=== PATIENT | female | born 1990 | race African-American/Black ===

== ENCOUNTER 2016-08-23 11:50 | Emergency (ER) | payer BC ==
[2016-08-23] MEDS ORDERED: SODIUM CHLORIDE 0.9% 1,000 ML IV STA (13:37)
[2016-08-23] MEDS ORDERED: SODIUM CHLORIDE 0.9% 500 ML IV STA (13:37)
[2016-08-23] MEDS ORDERED: METOCLOPRAMIDE 5 MG/ML 2 ML VIAL IVP STA (13:37)
--- NOTE | 2016-08-23 13:39 | ED ---
General Adult HPI - General Chief complaint: Nausea/Vomiting/Diarrhea Stated complaint: NAUSEA, VOMITING, 6 WEEKS Time Seen by Provider: 08/23/16 13:32 Source: patient, RN notes reviewed Mode of arrival: ambulatory Limitations: no limitations - History of Present Illness Initial comments: Patient is a 26-year-old female who is approximately 6 weeks , who presents emergency room today with a chief complaint of increased nausea vomiting. Denies abdominal pain. Denies any vaginal bleeding or discharge. Patient does admit that she's had increased vomiting over the last 5 days having a difficult time keeping down food or food. Patient denies any signs of blood in the emesis. She denies any other complaints. Does admit to one previous with similar symptoms. Patient denies any recent fever, chills, shortness of breath, chest pain, back pain, abdominal pain, numbness or tingling, dysuria or hematuria, constipation or diarrhea, headaches or visual changes, or any other complaints. - Related Data Previous Rx's Medication Instructions Recorded Metoclopramide HCl [Reglan] 10 mg PO Q6HR PRN #5 day 08/23/16 Allergies Allergy/AdvReac Type Severity Reaction Status Date / Time escitalopram oxalate Allergy Anaphylaxis Verified 08/23/16 14:02 [From Lexapro] Review of Systems ROS Statement: Those systems with pertinent positive or pertinent negative responses have been documented in the HPI. ROS Other: All systems not noted in ROS Statement are negative. Past Medical History Past Medical History: No Reported History Additional Past Medical History / Comment(s): Obstetric history: This is her first and she has had care with Dr Montoya since 9 weeks. A+ , abs neg, Rub Imm, RPR NR, HEp B neg. Neg quad and normal 1hr GTT. GBS was obtained last week-no results known at this time. History of Any Multi-Drug Resistant Organisms: None Reported Additional Past Surgical History / Comment(s): Laparoscopy Past Anesthesia/Blood Transfusion Reactions: No Reported Reaction Past Psychological History: Depression Additional Psychological History / Comment(s): not treated during Smoking Status: Never smoker Past Alcohol Use History: None Reported Past Drug Use History: None Reported - Past Family History Father Family Medical History: Cancer, Hypertension General Exam - General Exam Comments Initial Comments: General: The patient is awake and alert, in no distress, and does not appear acutely ill. Eye: Pupils are equal, round and reactive to light, extra-ocular movements are intact. No nystagmus. There is normal conjunctiva bilaterally. No signs of icterus. Ears, nose, mouth and throat: There are moist mucous membranes and no oral lesions. Neck: The neck is supple, there is no tenderness or JVD. Cardiovascular: There is a regular rate and rhythm. No murmur, rub or gallop is appreciated. Respiratory: Lungs are clear to auscultation, respirations are non-labored, breath sounds are equal. No wheezes, stridor, rales, or rhonchi. Gastrointestinal: Soft, non-distended, non-tender abdomen without masses or organomegaly noted. There is no rebound or guarding present. No CVA tenderness. Bowel sounds are unremarkable. Musculoskeletal: Normal ROM, no tenderness. Strength 5/5. Sensation intact. Pulses equal bilaterally 2+. Neurological: A&O x 3. CN II-XII intact, There are no obvious motor or sensory deficits. Coordination appears grossly intact. Speech is normal. Skin: Skin is warm and dry and no rashes or lesions are noted. Psychiatric: Cooperative, appropriate mood & affect, normal judgment. Limitations: no limitations Course Vital Signs 08/23/16 12:10 Temperature 98.8 F Pulse Rate 91 Respiratory 18 Rate Blood Pressure 139/83 O2 Sat by Pulse 100 Oximetry Medical Decision Making - Medical Decision Making Patient reexamined this time shows no signs of distress. Does admit that she's feeling better after IV medications here in the emergency room. Patient did receive Reglan. She states didn't make her feel anxious was given Benadryl afterwards. States feeling fine at this time. States rather be discharged home. Patient will be discharged home with a prescription for Prevacid. Advised to use Benadryl as needed. Advised to follow-up with her CONSTRUCTION WORKER over the next 2 days or return here the emergency room for any symptoms increase or worsen or for any other concerns. Disposition Clinical Impression: Hyperemesis gravidarum Disposition: HOME SELF-CARE Condition: Good Instructions: Hyperemesis Gravidarum (ED) Additional Instructions: Please use medication as discussed. Please follow-up with CONSTRUCTION WORKER in the next 2 days. Please return to emergency room if the symptoms increase or worsen or for any other concerns. Prescriptions: Metoclopramide HCl [Reglan] 10 mg PO Q6HR PRN #5 day PRN Reason: Nausea Referrals: Juan Johnson MD [Primary Care Provider] - 1-2 days Time of Disposition: 14:51
[2016-08-23] MEDS ORDERED: diphenhydrAMINE 50 MG/ML 1 ML VIAL IVP STA (14:13)
[2016-08-23 15:36] VITALS: BP 108/64; PULSE 80; RESP 16; TEMP 98
== END 2016-08-23 15:36 | disposition home or self-care (01) ==
LOC: EC 11:50
DX: O21.0 Mild hyperemesis gravidarum (principal); Z3A.01 Less than 8 weeks gestation of pregnancy; Z88.8 Allergy status to other drugs, medicaments and biological substances
CPT/HCPCS: 99283; 96374; 96375; 96361 ×2; J1200; J2765

== ENCOUNTER → 2016-09-21 | Outpatient (CLI) | payer BC ==
[2016-09-21 10:47] LABS: CH 30.8; CHCM 33.1; HCT 39.2 % (34.0-46.0); HGB 12.7 gm/dL (11.4-16.0); MCH 30.2 pg (25.0-35.0); MCHC 32.3 g/dL (31.0-37.0); MCV 93.6 fL (80.0-100.0); RBC 4.19 m/uL (3.80-5.40); RDW 12.5 % (11.5-15.5); WBC 7.7 k/uL (3.8-10.6)
[2016-09-21 10:59] LABS: Appearance,Urine Clear (Clear); Bilirubin,Urine Negative (Negative); Glucose,Urine (UA) Negative (Negative); Ketones,Urine Negative (Negative); Leukocyte Esterase,Urine Negative (Negative); Nitrite,Urine Negative (Negative); Protein,Urine Negative (Negative); UA Billing (MACRO vs. MICRO) CHEM; Urobilinogen,Urine <2.0 mg/dL (<2.0)
[2016-09-21 11:03] LABS: Glucose 99 mg/dL (74-99); Non-African American GFR(MDRD) >60 (>60 ml/min/1.73 sqM)
[2016-09-21 11:31] LABS: Hepatitis B Surface Ag Index 0.07
--- NOTE | 2016-09-21 12:41 | US ---
EXAMINATION TYPE: US OB <= 14 wk twins DATE OF EXAM: 09/21/2016 10:27 AM COMPARISON: NONE CLINICAL HISTORY: Confirm Dates Z36.: EXAM PERFORMED: OBTA EXAM MEASUREMENTS: GESTATIONAL AGE / DATING Physician Established: not established Dates by LMP: (10 weeks/2 days) EDC: 04/17/2017 Dates by First Scan: DIE MAKER TRIM Dates by Current Scan for Baby A: ( 9 weeks/6 days) EDC: 04/20/2017 Dates by Current Scan for Baby B: (10 weeks/1 days) EDC: 04/18/2017 MATERNAL ANATOMY Uterus: 15.8 x 11.1 x 6.3cm Right Ovary: 2.3 x 1.3 x 1.3cm Left Ovary: not seen due to bowel gas and enlarging UT Post CDS / Adnexa: wnl Presence of free fluid: no Presence of corpus luteal cyst: not seen Presence of subchorionic bleed: no Presence of two separate gestational sacs: yes GESTATION / SURVEY TWIN A CRL: 2.9cm (9wks/6days) MSD: wnl Yolk Sac (normal less than 6mm): 0.4cm Heart Rate: 172 bpm Rhythm: Normal IUP: Viable IUP TWIN B CRL: 3.1cm (10wks/1days) MSD: wnl Yolk Sac (normal less than 6mm): 0.4cm Heart Rate: 185 bpm Rhythm: Normal IUP: Viable IUP Date of LMP: 07/11/2016 Beta HcG (if available): not available TECHNOLOGIST IMPRESSION: Viable dichorionic diamniotic gestation seen IMPRESSION: Twin viable intrauterine pregnancies corresponding to ultrasound age for fetus A to maternal left skyler e 9 weeks 6 days with estimated date of delivery 20 April 2017 and for twin B to maternal right s rere ultrasound age 10 weeks 1 day estimated date of delivery 18 April 2017
[2016-09-21 13:16] LABS: Specific Gravity,Urine 1.001 (1.001-1.035)
== END | disposition home or self-care (01) ==
LOC: RADUSWWP 09:29
PROVIDERS: ATTEND Obstetrics & Gynecology
DX: O09.41 Supervision of pregnancy with grand multiparity, first trimester (principal); O30.041 Twin pregnancy, dichorionic/diamniotic, first trimester; Z36 Encounter for antenatal screening of mother; Z3A.10 10 weeks gestation of pregnancy
CPT/HCPCS: 36415; 76801; 76802; 81003; 82565; 82947; 85027; 86762; 86780; 86850; 86900; 86901; 87086; 87340; 87491; 87591

== ENCOUNTER 2016-12-21 15:42 | Outpatient (CLI) | payer BC ==
[2016-12-21 16:33] LABS: Appearance,Urine Clear (Clear); Bacteria,Urine Rare /hpf; Bilirubin,Urine Negative (Negative); Glucose,Urine (UA) Negative (Negative); Ketones,Urine Negative (Negative); Leukocyte Esterase,Urine Trace (Negative); Nitrite,Urine Negative (Negative); PH, Urine 6.5 (5.0-8.0); Particle Count 802; Protein,Urine Negative (Negative); RBC,Urine <1 /hpf (0-5); Specific Gravity,Urine 1.002 (1.001-1.035); Squamous Epithelial Cell,Urine 1 /hpf (0-4); UA Billing (MACRO vs. MICRO) MICRO; Urobilinogen,Urine <2.0 mg/dL (<2.0); WBC,Urine 1 /hpf (0-5)
[2016-12-21 16:40] VITALS: BP 114/69; PULSE 107; RESP 14; TEMP 98.4
--- NOTE | 2017-01-23 11:57 | P.MSEPDOC ---
Presenting Problems - Arrival Data Date of Arrival on Unit: 12/21/16 Time of Arrival on Unit: 15:42 Mode of Transport: Ambulatory - Complaint OB-Reason for Admission/Chief Complaint: Other Comment: pt took bp at home at reported it as elevated Medical History - Information : 2 Para: 1 Term: 1 : 0 Abortions: Spontaneous or Elective: 0 Number of Living Children: 0 - Gestational Age Expected Date of Delivery: 04/17/17 Gestational Age by KIRAN (wks/days): 28 Weeks and 0 Days - History Complications: Multiple Review of Systems - Review of Systems Constitutional: No problems Breast: No problems ENT: No problems Cardiovascular: No problems Respiratory: No problems Gastrointestinal: No problems Genitourinary: No problems Musculoskeletal: No problems Neurological: No problems Skin: No problems Vital Signs - Temperature Temperature: 98.4 F Temperature Source: Oral - Pulse Brachial Pulse Rate: 107 Pulse Assessment Method: Automatic Cuff - Respirations Respiratory Rate: 14 Oxygen Delivery Method: Room Air - Blood Pressure Right Arm Blood Pressure: 114/69 Blood Pressure Mean: 84 Blood Pressure Source: Automatic Cuff Medical Screen Scoring (Pre) - Cervical Exam Dilation: Exam Deferred - Uterine Contractions Frequency: N/A Duration: N/A Intensity: N/A - Maternal Vital Signs Maternal Temperature: N/A Signs of Preeclampsia: N/A Maternal Respirations: N/A - Maternal Trauma Maternal Trauma: N/A - Assessment Position: N/A Station: N/A - Total Score Total Score (Pre): 0 - Level of Risk Level of Risk: Low (0-5) Physician Notification (Pre) - Physician Notified Physician Notified Date: 12/21/16 Physician Notified Time: 16:22 Physician/Practitioner Notifed:: yogi Spoke With: yogi New Order Received: Yes - Notification Comment Comment: collect urine, pt may be discharged home, pt will be notified of results if in need of treatment Disposition - Disposition OB Disposition: Discharge to home Discharge Date: 12/21/16 Discharge Time: 16:32 I agree with the RN Medical Screening Exam: Yes Risk & Benefit of care provided described in d/c instruction: Yes Diagnosis: GESTATIONAL HTN W/O SIGNIFICANT PROTEINURIA, THIRD TRIMESTER
== END 2016-12-21 16:42 | disposition home or self-care (01) ==
LOC: FBPOP 15:42
PROVIDERS: ATTEND Obstetrics & Gynecology
DX: O13.3 Gestational [pregnancy-induced] hypertension without significant proteinuria, third trimester (principal); Z3A.28 28 weeks gestation of pregnancy
CPT/HCPCS: 81001; 99213

== ENCOUNTER → 2017-01-03 | Outpatient (CLI) | payer BC ==
[2017-01-03 10:40] LABS: CH 31.2; CHCM 33.9; HCT 34.2 % (34.0-46.0); HDW 2.45; HGB 11.4 gm/dL (11.4-16.0); MCH 30.7 pg (25.0-35.0); MCHC 33.2 g/dL (31.0-37.0); MCV 92.6 fL (80.0-100.0); Mean Platelet Volume 6.9; RDW 12.4 % (11.5-15.5); WBC 7.7 k/uL (3.8-10.6)
== END | disposition home or self-care (01) ==
LOC: LABWHC1 09:24
PROVIDERS: ATTEND Obstetrics & Gynecology
DX: Z34.82 Encounter for supervision of other normal pregnancy, second trimester (principal); Z3A.00 Weeks of gestation of pregnancy not specified
CPT/HCPCS: 36415; 82950; 85027

== ENCOUNTER 2017-02-24 11:12 | Outpatient (CLI) | payer BC ==
[2017-02-24 11:44] VITALS: BP 122/65; PULSE 102; RESP 16; TEMP 97.3
--- NOTE | 2017-02-25 12:07 | P.MSEPDOC ---
Presenting Problems - Arrival Data Date of Arrival on Unit: 02/24/17 Time of Arrival on Unit: 11:12 Mode of Transport: Ambulatory - Complaint OB-Reason for Admission/Chief Complaint: NST Medical History - Information : 2 Para: 1 Term: 1 : 0 Abortions: Spontaneous or Elective: 0 Number of Living Children: 0 - Gestational Age Expected Date of Delivery: 04/17/17 Gestational Age by KIRAN (wks/days): 32 Weeks and 5 Days - History Complications: Multiple Review of Systems - Review of Systems Constitutional: No problems Breast: No problems ENT: No problems Cardiovascular: No problems Respiratory: No problems Gastrointestinal: No problems Genitourinary: No problems Musculoskeletal: No problems Neurological: No problems Skin: No problems Vital Signs - Temperature Temperature: 97.3 F Temperature Source: Axillary - Pulse Right Sitting Brachial Pulse Rate: 102 Pulse Assessment Method: Automatic Cuff - Respirations Respiratory Rate: 16 Oxygen Delivery Method: Room Air O2 Sat by Pulse Oximetry: 97 - Blood Pressure Right Arm Sitting Blood Pressure: 122/65 Blood Pressure Mean: 84 Blood Pressure Source: Automatic Cuff Medical Screen Scoring (Pre) - Cervical Exam Dilation: Exam Deferred Effacement: Exam Deferred Membranes: Intact - Uterine Contractions Frequency: > 5 minutes apart = 1 Duration: > 40 seconds = 2 Intensity: N/A - Maternal Vital Signs Maternal Temperature: N/A Maternal Blood Pressure: N/A Signs of Preeclampsia: N/A Maternal Respirations: N/A - Maternal Trauma Maternal Trauma: N/A - Assessment Baseline FHR: 145 Heart Rate - NICHD Category: Category I (Normal) = 0 NST: Reactive Position: N/A Station: N/A - Total Score Total Score (Pre): 3 - Level of Risk Level of Risk: Low (0-5) Physician Notification (Pre) - Physician Notified Physician Notified Date: 02/24/17 Physician Notified Time: 11:44 New Order Received: Yes - Notification Comment Comment: discharge Disposition - Disposition OB Disposition: Discharge to home Discharge Date: 02/24/17 Discharge Time: 11:51 I agree with the RN Medical Screening Exam: Yes Risk & Benefit of care provided described in d/c instruction: Yes Diagnosis: TWIN , DICHORIONIC/DIAMNIOTIC, THIRD TRIMESTER (nst)
== END 2017-02-24 11:51 | disposition home or self-care (01) ==
LOC: FBPOP 11:12
PROVIDERS: ATTEND Obstetrics & Gynecology
DX: O30.043 Twin pregnancy, dichorionic/diamniotic, third trimester (principal); Z3A.32 32 weeks gestation of pregnancy
CPT/HCPCS: 59025; 99213

== ENCOUNTER 2017-03-03 15:29 | Outpatient (CLI) | payer BC ==
--- NOTE | 2017-03-23 17:36 | P.MSEPDOC ---
Presenting Problems - Arrival Data Date of Arrival on Unit: 03/03/17 Time of Arrival on Unit: 15:31 Mode of Transport: Wheelchair Medical History - Information : 2 Para: 1 Term: 1 : 0 Abortions: Spontaneous or Elective: 0 Number of Living Children: 0 Disposition - Disposition Discharge Date: 03/03/17 Discharge Time: 17:01 I agree with the RN Medical Screening Exam: Yes Risk & Benefit of care provided described in d/c instruction: Yes Diagnosis: DECREASED MOVEMENTS, SECOND TRIMESTER, FETUS 1
== END 2017-03-03 17:01 | disposition home or self-care (01) ==
LOC: FBPOP 15:29
PROVIDERS: ATTEND Obstetrics & Gynecology
DX: O36.8120 Decreased fetal movements, second trimester, not applicable or unspecified (principal)
CPT/HCPCS: 59025; 99213

== ENCOUNTER 2017-03-13 00:45 | Inpatient (IN) | payer BC ==
[2017-03-13] MEDS ORDERED: OXYTOCIN 10 UNIT/ML 1 ML VIAL IM PRN (01:01)
[2017-03-13] MEDS ORDERED: AMPICILLIN 2,000 MG in SODIUM CHLORIDE 0.9% 100 ML IVPB STA (01:01)
[2017-03-13] MEDS ORDERED: METHYLERGONOVINE 0.2 MG/ML 1 ML AMP IM PRN (01:01)
[2017-03-13] MEDS ORDERED: TERBUTALINE 1 MG/ML VIAL SQ PRN (01:01)
[2017-03-13] MEDS ORDERED: LIDOCAINE 1% (PF) 10 MG/ML (30 ML SDV) SQ PRN (01:01)
[2017-03-13] MEDS ORDERED: CARBOPROST TROMETHAMINE 250 MCG/ML 1 ML AMP IM PRN (01:01)
[2017-03-13] MEDS ORDERED: LACTATED RINGERS 1,000 ML IV SCH (01:15)
[2017-03-13 01:26] VITALS: BMI 28.5
[2017-03-13] MEDS ORDERED: KETOROLAC 30 MG/ML 1 ML VIAL ONE (01:37)
[2017-03-13 01:41] LABS: Basophils % (A) 0 %; CH 31.3; CHCM 33.8; Eosinophils # (A) 0.1 k/uL (0-0.7); Eosinophils % (A) 1 %; HCT 37.4 % (34.0-46.0); HDW 2.29; HGB 12.3 gm/dL (11.4-16.0); Luc # (Auto) 0.27; Luc % (Auto) 4; Lymphocytes # (A) 2.2 k/uL (1.0-4.8); Lymphocytes % (A) 30 %; MCH 30.5 pg (25.0-35.0); MCHC 32.8 g/dL (31.0-37.0); Mean Platelet Volume 8.9; Monocytes # (A) 0.4 k/uL (0-1.0); Monocytes % (A) 6 %; Neutrophils # (A) 4.3 k/uL (1.3-7.7); Neutrophils % (A) 59 %; RBC 4.02 m/uL (3.80-5.40); RDW 14.3 % (11.5-15.5); WBC 7.4 k/uL (3.8-10.6); WBC (Perox) 7.98
[2017-03-13] MEDS ORDERED: OXYTOCIN 20 UNITS/1000 ML NS 1,000 ML IV SCH (02:10)
[2017-03-13] MEDS ORDERED: diphenhydrAMINE 50 MG CAP PO PRN (02:22)
[2017-03-13] MEDS ORDERED: diphenhydrAMINE 25 MG CAP PO PRN (02:22)
[2017-03-13] MEDS ORDERED: WITCH HAZEL 1 EACH MED..PAD TOPICAL PRN (02:22)
[2017-03-13] MEDS ORDERED: ACETAMINOPHEN TAB 325 MG TAB PO PRN (02:22)
[2017-03-13] MEDS ORDERED: HYDROCORTISONE 2.5% RECTAL CREAM 30 GM TUBE RECTAL PRN (02:22)
[2017-03-13] MEDS ORDERED: BENZOCAINE/MENTHOL SPRAY 1 GM/SPRAY AEROSOL TOPICAL PRN (02:22)
[2017-03-13] MEDS ORDERED: SIMETHICONE 80 MG CHEWABLE PO PRN (02:22)
[2017-03-13] MEDS ORDERED: Acetaminophen-Codeine 300-30mg TAB PO PRN (02:22)
[2017-03-13] MEDS ORDERED: diphenhydrAMINE 50 MG/ML 1 ML VIAL IVP PRN ×2 (02:22)
[2017-03-13] MEDS ORDERED: ZOLPIDEM 5 MG TAB PO PRN (02:22)
[2017-03-13] MEDS ORDERED: LANOLIN CREAM 5 GM TUBE TOPICAL PRN (02:22)
--- NOTE | 2017-03-13 02:25 | P.HPOB ---
History of Present Illness H&P Date: 03/13/17 Chief Complaint: Intrauterine at 35 weeks with twins: rupture of membranes Layers a 18-year-old at 35 weeks gestation who ryes following rupture of membranes at 12:15 this morning. Fluid was noted be clear. She had been daniel irregularly just prior to that and by the time she gets labor and delivery she was dilated to 6-1/2 cm. She is known twin and she has been followed with maternal medicine. Babies on the monitor both are reactive in the 140s to 150s and heart rate. Her course other than being a twin has been generally unremarkable. On physical exam vital signs are stable and afebrile. Heart regular, lungs clear, extremities without pain. Osteopathic exams unremarkable. Abdomen is soft gravid uterus is noted. Assessment intrauterine at term. Plan is for a vaginal delivery and will plan to do a double set up in the section room. Lengthy discussion has previously been held with the patient and her family on vaginal delivery versus section with twin she is opted for vaginal delivery. Past Medical History Past Medical History: No Reported History Additional Past Medical History / Comment(s): Obstetric history: This is her first and she has had care with Dr Montoya since 9 weeks. A+ , abs neg, Rub Imm, RPR NR, HEp B neg. Neg quad and normal 1hr GTT. GBS was obtained last week-no results known at this time. History of Any Multi-Drug Resistant Organisms: None Reported Additional Past Surgical History / Comment(s): Laparoscopy Past Anesthesia/Blood Transfusion Reactions: No Reported Reaction Past Psychological History: Depression Additional Psychological History / Comment(s): not treated during Smoking Status: Never smoker Past Alcohol Use History: None Reported Past Drug Use History: None Reported - Past Family History Father Family Medical History: Cancer, Hypertension Medications and Allergies Home Medications Medication Instructions Recorded Confirmed Type Aspirin [Adult Low Dose Aspirin EC] 1 tab PO DAILY 12/21/16 03/13/17 History Pnv,Calcium 72/Iron/Folic Acid 1 tab DAILY 12/21/16 03/13/17 History [ Plus Tablet] Doxylamine Succinate [Unisom] 1 tab PO DAILY 02/24/17 03/13/17 History Pyridoxine [Vitamin B-6] 50 mg PO ONCE 02/24/17 03/13/17 History Allergies Allergy/AdvReac Type Severity Reaction Status Date / Time escitalopram oxalate Allergy Anaphylaxis Verified 03/13/17 00:51 [From Lexapro] Exam Osteopathic Statement: *. No significant issues noted on an osteopathic structural exam other than those noted in the History and Physical/Consult. - Vital Signs Vital signs: Vital Signs Temp Pulse Resp BP 03/13/17 00:54 97.1 F L 90 15 132/95 Intake and Output 03/12/17 03/12/17 03/13/17 14:59 22:59 06:59 Other: Weight 73.028 kg Patient Weight 03/13/17 06:59 Weight 73.028 kg Results Result Diagrams: 03/13/17 01:33
--- NOTE | 2017-03-13 02:27 | P.PROBDLV ---
Vaginal Delivery Note - . Vaginal Delivery Note: Patient progressed complete and pushing with spontaneous vaginal delivery of twin babies. Baby a was a girl weighing 4 lbs. 3 oz. with scores of 9 and 9 at one and 5 minutes respectively she was delivered over a first-degree perineal laceration falling deliver the head anterior posterior shoulders easily were delivered and mouth nares were bulb suctioned. Baby was then placed on mother's abdomen where the umbilical cord was allowed to pulsate for approximately 30 seconds following the delivery. Once this was accomplished I did do a vaginal check and did verify the baby be was still vertex and allowed her to have one or 2 contractions to allow the baby to come down and engage. Heart tones remained stable. There was one deceleration that went to this and to the 70s for approximately 20-30 seconds but did return to baseline of 130 shortly thereafter. Artificial rupture membranes was then performed and clear fluid is noted. She again pushed and baby was delivered without difficulty in a similar fashion once head was out interim posterior shoulders were easily delivered mouth and nares were then bulb suctioned and baby was then again placed on mother's abdomen allowed to have the cord pulsate for approximately 30 seconds. Following clamping cutting of the cord nursery personnel was present to assume care. Placenta was then were delivered intact and Pitocin was added to the IV. score for baby B were 8 and 9 at one and 5 minutes respectively and the weight was 4 lbs. 5 oz. Once this was completed lidocaine was injected in the perineum and repaired in interrupted fashion with 3 3-0 Vicryl sutures. Mother and babies both appear stable following delivery.
[2017-03-13] MEDS: Acetaminophen-Codeine 300-30mg TAB PO PRN ×2 (04:02→21:29)
[2017-03-13] MEDS ORDERED: AMPICILLIN 1,000 MG in SODIUM CHLORIDE 0.9% 50 ML IVPB SCH (05:01)
--- NOTE | 2017-03-13 11:15 | P.PNOBGVD ---
Subjective - Subjective Principal diagnosis: day 0 Interval history: Overall there is doing well. She's angling, voiding, and she is tolerating her diet. She had a vaginal delivery of twin babies last night at approximately 2: 30 in the morning. We'll continue care for now no other changes at this time. We'll plan to advance the diet today as well. Patient reports: Reports appetite normal, Reports voiding normally, Reports pain well controlled, Reports ambulating normally [place]: in NICU Objective - Latest Vital Signs Latest vital signs: Vital Signs Temp Pulse Pulse Resp BP Pulse Ox 03/13/17 08:00 97.9 F 76 16 125/85 03/13/17 04:24 97 F L 57 L 15 137/78 100 03/13/17 03:54 58 L 15 156/82 100 03/13/17 03:24 60 15 143/92 03/13/17 03:09 58 L 15 146/90 03/13/17 02:54 61 15 148/88 100 03/13/17 02:39 64 15 145/88 03/13/17 02:24 97.3 F L 70 15 154/91 03/13/17 00:54 97.1 F L 90 15 132/95 Intake and Output 03/12/17 03/13/17 03/13/17 22:59 06:59 14:59 Other: Weight 73.028 kg - Exam Lungs: bilateral: normal Chest: Normal S1, Normal S2 Extremities: Present: normal Abdomen: Present: normal appearance, soft Uterus: Present: normal, firm
[2017-03-13] MEDS: IBUPROFEN 600 MG TAB PO PRN ×2 (11:56→17:56)
[2017-03-14] MEDS: IBUPROFEN 600 MG TAB PO PRN ×4 (02:35→21:27)
[2017-03-14] MEDS: SENNOSIDES-DOCUSATE SODIUM 1 EACH TAB PO SCH ×4 (08:11→21:27)
--- NOTE | 2017-03-14 13:16 | P.PNOBGVD ---
Subjective - Subjective Principal diagnosis: Status post vaginal delivery day #1 Interval history: Patient is doing okay. She is more emotional today. Lochia is decreasing and pain is well-controlled with ibuprofen. She is pumping her breast milk. Patient reports: Reports appetite normal, Reports voiding normally, Reports pain well controlled, Reports ambulating normally [place]: doing well, other (Babies are in special care nursery) Objective - Latest Vital Signs Latest vital signs: Vital Signs Temp Pulse Resp BP 03/14/17 08:00 97.7 F 70 18 128/71 03/14/17 00:00 98.2 F 64 14 122/78 03/13/17 16:00 97.8 F 68 16 123/90 - Exam Extremities: Present: normal Abdomen: Present: normal appearance, soft Uterus: Present: normal, firm Assessment and Plan (1) Vaginal delivery Narrative/Plan: Impression is status post vaginal delivery of twin gestation day #1. Plan is to continue with care. Current Visit: Yes Status: Acute Code(s): O80 - ENCOUNTER FOR FULL-TERM UNCOMPLICATED DELIVERY SNOMED Code(s): 285815198
[2017-03-15 00:06] VITALS: RESP 16
[2017-03-15] MEDS: IBUPROFEN 600 MG TAB PO PRN ×3 (04:31→16:28)
[2017-03-15] MEDS: SENNOSIDES-DOCUSATE SODIUM 1 EACH TAB PO SCH (07:58)
--- NOTE | 2017-03-15 08:46 | P.DS ---
Providers Date of admission: 03/13/17 00:57 Expected date of discharge: 03/15/17 Attending physician: Severino Montoya Primary care physician: Severino Montoya Hospital Course: Sris doing very well day 1. She is involuting, voiding, and she is tolerating her diet. She voices no complaints. Vital signs are stable and afebrile. Heart regular, lungs clear, extremities without pain. Abdomen is soft uterus is firm and lochia is reported be light. She'll be discharged home with a prescription for Motrin for pain and all of the discharge instructions were reviewed. All questions are answered for her prior to discharge and she is stable for discharge at this time. Patient Condition at Discharge: Good Plan - Discharge Summary New Discharge Prescriptions: New Ibuprofen [Motrin] 600 mg PO Q6HR PRN #30 tab PRN Reason: Pain No Action Aspirin [Adult Low Dose Aspirin EC] 1 tab PO DAILY Pnv,Calcium 72/Iron/Folic Acid [ Plus Tablet] 1 tab DAILY Pyridoxine [Vitamin B-6] 50 mg PO ONCE Doxylamine Succinate [Unisom] 1 tab PO DAILY Discharge Medication List Aspirin [Adult Low Dose Aspirin EC] 1 tab PO DAILY 12/21/16 [History] Pnv,Calcium 72/Iron/Folic Acid [ Plus Tablet] 1 tab DAILY 12/21/16 [ History] Doxylamine Succinate [Unisom] 1 tab PO DAILY 02/24/17 [History] Pyridoxine [Vitamin B-6] 50 mg PO ONCE 02/24/17 [History] Ibuprofen [Motrin] 600 mg PO Q6HR PRN #30 tab 03/15/17 [Rx] Follow up Appointment(s)/Referral(s): Severino Montoya DO [Primary Care Provider] - 6 Weeks Activity/Diet/Wound Care/Special Instructions: No heavy lifting, limit stairs and driving, and pelvic rest. If any high temperatures, heavy bleeding, or severe pain call my office Discharge Disposition: HOME SELF-CARE
[2017-03-15 18:48] VITALS: BP 121/70; TEMP 98.1
--- NOTE | 2017-03-16 17:37 | P.MSEPDOC ---
Presenting Problems - Arrival Data Date of Arrival on Unit: 03/13/17 Time of Arrival on Unit: 01:05 Mode of Transport: Wheelchair - Complaint OB-Reason for Admission/Chief Complaint: Rule Out SROM Medical History - Information : 2 Para: 1 Term: 1 : 0 Abortions: Spontaneous or Elective: 0 Number of Living Children: 0 - Gestational Age Expected Date of Delivery: 04/17/17 Gestational Age by KIRAN (wks/days): 35 Weeks and 3 Days - History Complications: Multiple Review of Systems - Review of Systems Constitutional: No problems Breast: No problems ENT: No problems Cardiovascular: No problems Respiratory: No problems Gastrointestinal: No problems Genitourinary: No problems Musculoskeletal: No problems Neurological: No problems Skin: No problems Vital Signs - Temperature Temperature: 98.1 F Temperature Source: Oral - Pulse Pulse Oximetery Pulse Rate: 57 Pulse Assessment Method: Automatic Cuff Brachial Pulse Rate: 64 Pulse Assessment Method: Automatic Cuff - Respirations Respiratory Rate: 16 Oxygen Delivery Method: Room Air - Blood Pressure Right Arm Blood Pressure: 121/70 Blood Pressure Mean: 87 Blood Pressure Source: Automatic Cuff Medical Screen Scoring (Pre) - Cervical Exam Dilation: 4-7 cm = 2 Effacement: More than 50% = 2 Membranes: Ruptured = 3 - Uterine Contractions Frequency: < 36 weeks = 6 Duration: > 40 seconds = 2 Intensity: N/A - Maternal Vital Signs Maternal Temperature: N/A Maternal Blood Pressure: N/A Signs of Preeclampsia: N/A Maternal Respirations: N/A - Maternal Trauma Maternal Trauma: N/A - Assessment Heart Rate - NICHD Category: Category I (Normal) = 0 NST: Reactive Position: N/A Station: N/A - Total Score Total Score (Pre): 15 - Level of Risk Level of Risk: High (10+) Physician Notification (Pre) - Physician Notified Physician Notified Date: 03/13/17 Physician Notified Time: 00:50 Physician/Practitioner Notifed:: Jan Bhatia Order Received: Yes Disposition - Disposition OB Disposition: Admit, LDRP Suite Discharge Date: 03/15/17 Discharge Time: 16:15 I agree with the RN Medical Screening Exam: Yes Risk & Benefit of care provided described in d/c instruction: Yes Diagnosis: TWINS, BOTH LIVEBORN
[2017-03-16 17:38] VITALS: PULSE 57
== END 2017-03-15 16:15 | disposition home or self-care (01) | DRG 775 ==
LOC: FBPOP 00:45 → 4FBP 00:57
PROVIDERS: ADMIT Obstetrics & Gynecology; ATTEND Obstetrics & Gynecology
PROC: 10E0XZZ Delivery of Products of Conception, External Approach (ICD-10-PCS; principal; 2017-03-13)
PROC: 0HQ9XZZ Repair Perineum Skin, External Approach (ICD-10-PCS; 2017-03-13)
DX: O42.013 Preterm premature rupture of membranes, onset of labor within 24 hours of rupture, third trimester (principal); O30.043 Twin pregnancy, dichorionic/diamniotic, third trimester; Z37.2 Twins, both liveborn; O99.344 Other mental disorders complicating childbirth; O70.0 First degree perineal laceration during delivery; F32.9 Major depressive disorder, single episode, unspecified; Z3A.35 35 weeks gestation of pregnancy; Z37.0 Single live birth; Z79.82 Long term (current) use of aspirin; Z79.899 Other long term (current) drug therapy; Z88.8 Allergy status to other drugs, medicaments and biological substances
CPT/HCPCS: 59025; 85025; 86850; 86900; 86901; 88307; 99213

== ENCOUNTER → 2017-05-11 | Outpatient (CLI) | payer BC | END | disposition home or self-care (01) | LOC: LABWHC1 10:49 | PROVIDERS: ATTEND Obstetrics & Gynecology | DX: Z34.90 Encounter for supervision of normal pregnancy, unspecified, unspecified trimester (principal); Z3A.00 Weeks of gestation of pregnancy not specified | CPT/HCPCS: 36415; 84702 ==

== ENCOUNTER 2020-02-08 14:56 | Emergency (ER) | payer BC ==
[2020-02-08] MEDS ORDERED: ONDANSETRON 4 MG/2 ML VIAL IVP STA (15:13)
[2020-02-08] MEDS ORDERED: MORPHINE SULFATE 4 MG/ML SYRINGE IV STA (15:13)
[2020-02-08] MEDS ORDERED: SODIUM CHLORIDE 0.9% 1,000 ML IV STA (15:13)
--- NOTE | 2020-02-08 15:16 | ED ---
General Adult HPI - General Chief complaint: Abdominal Pain Stated complaint: Abd Pain Time Seen by Provider: 02/08/20 15:04 Source: patient Mode of arrival: ambulatory Limitations: no limitations - History of Present Illness Initial comments: Dictation was produced using [employer] dictation software. please excuse any grammatical, word or spelling errors. This patient was cared for during a federal and state declared state of emergency secondary to Covid 19 Chief Complaint: 29-year-old female presents with right lower quadrant abdominal pain. History of Present Illness: 29-year-old female she presents today with right lower quadrant abdominal pain. Patient states she's had these symptoms progressively for the last several years. She is seen her CORRESPONDENCE RENEW CLERK about this. Patient states that she gets these episodes frequently approximately 12 times per month. She states it can last anywhere from half a day to 2 days. Patient states that her symptoms began again yesterday. She states that she is currently on her menstrual cycle. She states the pain as severe located to the right lower quadrant. She reports that its worse in certain positions. She denies any constitutional symptoms. She had seen her garbage man regarding this. She reports that she had an ultrasound and a expiratory laparoscopy which was found to be normal. States that her symptoms are gone 1 she's . She denies any history of any other abdominal surgeries. She denies any vaginal discharge or vaginal bleeding. No diarrhea. States that her emesis is nonbilious not bloody The ROS documented in this emergency department record has been reviewed and confirmed by me. Those systems with pertinent positive or negative responses have been documented in the HPI. All other systems are other negative and/or noncontributory. PHYSICAL EXAM: General Impression: Alert and oriented x3, acute distress secondary to pain HEENT: Normocephalic atraumatic, extra-ocular movements intact, pupils equal and reactive to light bilaterally, mucous membranes moist. Cardiovascular: Heart regular rate and rhythm Chest: Able to complete full sentences, no retractions, no tachypnea Abdomen: abdomen soft, tenderness to palpation in the right lower quadrant, Musculoskeletal: Pulses present and equal in all extremities, no peripheral edema Motor: no focal deficits noted Neurological: CN II-XII grossly intact, no focal motor or sensory deficits noted Skin: Intact with no visualized rashes Psych: Normal affect and mood ED course: 29-year-old male presents with acute on chronic abdominal pain. Patient reports a very obscure pattern which typically revolves around her menstrual period time with of the month. Vital signs upon arrival are within acceptable limits. Patient is in acute distress. She does have tenderness at McBurney's point. Unclear whether this pain comes from her right ovary her appendix. Given severity of patient's symptoms we will send patient to CT f of the abdomen and pelvis Patient treated with antiemetics, analgesics and 1 L normal saline bolus. Laboratory evaluation obtained. CBC unremarkable. Coag panel is unremarkable. Metabolic panel shows mild non-gap acidosis. Rest of metabolic panel is negative. Urinalysis shows 4+ ketones 32 red blood cells. Patient is on her menstrual period. Computed tomography scan of the abdomen and pelvis shows tiny amount of fluid in the pelvis could be physiologic. 3 cm Right adnexal density concerning for uterine fibroid versus hemorrhagic ovarian cyst. No evidence of acute appendicitis. Patient reevaluated after fluids, antiemetics and analgesic s with significant improvement of symptoms. Patient offered pelvic exam or refuse.'s point is not entirely clear what is causing patient's pain whether it is her menstrual cramping versus right adnexal findings. Patient feels significantly improved. She is agreeable for discharge. Patient told that she is significantly dehydrated with 4+ ketones in the urine. Patient given prescription for analgesics and antiemetics. She is urged to follow-up with her garbage man as soon as possible for outpatient management of her symptoms. Return parameters discussed. Patient clear for discharge. - Related Data Home Medications Medication Instructions Recorded Confirmed Acetaminophen [Tylenol] 1,000 mg PO DAILY PRN 02/08/20 02/08/20 Previous Rx's Medication Instructions Recorded HYDROcodone/APAP 5-325MG [[place] 1 tab PO Q6HR PRN 3 Days #12 tab 02/08/20 5-325] Ondansetron Odt [Zofran Odt] 4 mg PO Q8HR PRN #12 tab 02/08/20 Allergies Allergy/AdvReac Type Severity Reaction Status Date / Time escitalopram oxalate Allergy Anaphylaxis Verified 02/08/20 16:11 [From Lexapro] Review of Systems ROS Statement: Those systems with pertinent positive or pertinent negative responses have been documented in the HPI. ROS Other: All systems not noted in ROS Statement are negative. Past Medical History Past Medical History: No Reported History Additional Past Medical History / Comment(s): Obstetric history: This is her first and she has had care with Dr Montoya since 9 weeks. A+, abs neg, Rub Imm, RPR NR, HEp B neg. Neg quad and normal 1hr GTT. GBS was obtained last week-no results known at this time. History of Any Multi-Drug Resistant Organisms: None Reported Additional Past Surgical History / Comment(s): Laparoscopy Past Anesthesia/Blood Transfusion Reactions: No Reported Reaction Past Psychological History: Depression Smoking Status: Never smoker Past Alcohol Use History: None Reported Past Drug Use History: None Reported - Past Family History Father Family Medical History: Cancer, Hypertension General Exam Limitations: no limitations Course Vital Signs 02/08/20 02/08/20 14:58 16:34 Temperature 97.5 F L Pulse Rate 88 80 Respiratory 20 18 Rate Blood Pressure 147/71 121/66 O2 Sat by Pulse 100 100 Oximetry Medical Decision Making - Lab Data Result diagrams: 02/08/20 15:22 02/08/20 15:22 Lab Results 02/08/20 02/08/20 02/08/20 Range/Units 15:22 15:22 15:22 WBC 9.9 (3.8-10.6) k/uL RBC 4.17 (3.80-5.40) m/uL Hgb 12.4 (11.4-16.0) gm/dL Hct 38.7 (34.0-46.0) % MCV 92.9 (80.0-100.0) fL MCH 29.8 (25.0-35.0) pg MCHC 32.1 (31.0-37.0) g/dL RDW 11.9 (11.5-15.5) % Plt Count 320 (150-450) k/uL Neutrophils % 78 % Lymphocytes % 16 % Monocytes % 3 % Eosinophils % 2 % Basophils % 0 % Neutrophils # 7.7 (1.3-7.7) k/uL Lymphocytes # 1.6 (1.0-4.8) k/uL Monocytes # 0.3 (0-1.0) k/uL Eosinophils # 0.2 (0-0.7) k/uL Basophils # 0.0 (0-0.2) k/uL PT 10.3 (9.0-12.0) sec INR 1.0 (<1.2) APTT 20.2 L (22.0-30.0) sec Sodium 135 L (137-145) mmol/L Potassium 3.8 (3.5-5.1) mmol/L Chloride 105 (98-107) mmol/L Carbon Dioxide 19 L (22-30) mmol/L Anion Gap 11 mmol/L BUN 8 (7-17) mg/dL Creatinine 0.51 L (0.52-1.04) mg/dL Est GFR (CKD-EPI)AfAm >90 (>60 ml/min/1.73 sqM) Est GFR (CKD-EPI)NonAf >90 (>60 ml/min/1.73 sqM) Glucose 122 H (74-99) mg/dL Calcium 9.7 (8.4-10.2) mg/dL Total Bilirubin 0.9 (0.2-1.3) mg/dL AST 27 (14-36) U/L ALT 16 (4-34) U/L Alkaline Phosphatase 55 (38-126) U/L Total Protein 7.5 (6.3-8.2) g/dL Albumin 4.6 (3.5-5.0) g/dL Urine Color Urine Appearance (Clear) Urine pH (5.0-8.0) Ur Specific [place] (1.001-1.035) Urine Protein (Negative) Urine Glucose (UA) (Negative) Urine Ketones (Negative) Urine Blood (Negative) Urine Nitrite (Negative) Urine Bilirubin (Negative) Urine Urobilinogen (<2.0) mg/dL Ur Leukocyte Esterase (Negative) Urine RBC (0-5) /hpf Urine WBC (0-5) /hpf Ur Squamous Epith Cells (0-4) /hpf Urine Mucus (None) /hpf Urine HCG, Qual (Not Detectd) 02/08/20 02/08/20 Range/Units 15:43 15:43 WBC (3.8-10.6) k/uL RBC (3.80-5.40) m/uL Hgb (11.4-16.0) gm/dL Hct (34.0-46.0) % MCV (80.0-100.0) fL MCH (25.0-35.0) pg MCHC (31.0-37.0) g/dL RDW (11.5-15.5) % Plt Count (150-450) k/uL Neutrophils % % Lymphocytes % % Monocytes % % Eosinophils % % Basophils % % Neutrophils # (1.3-7.7) k/uL Lymphocytes # (1.0-4.8) k/uL Monocytes # (0-1.0) k/uL Eosinophils # (0-0.7) k/uL Basophils # (0-0.2) k/uL PT (9.0-12.0) sec INR (<1.2) APTT (22.0-30.0) sec Sodium (137-145) mmol/L Potassium (3.5-5.1) mmol/L Chloride (98-107) mmol/L Carbon Dioxide (22-30) mmol/L Anion Gap mmol/L BUN (7-17) mg/dL Creatinine (0.52-1.04) mg/dL Est GFR (CKD-EPI)AfAm (>60 ml/min/1.73 sqM) Est GFR (CKD-EPI)NonAf (>60 ml/min/1.73 sqM) Glucose (74-99) mg/dL Calcium (8.4-10.2) mg/dL Total Bilirubin (0.2-1.3) mg/dL AST (14-36) U/L ALT (4-34) U/L Alkaline Phosphatase (38-126) U/L Total Protein (6.3-8.2) g/dL Albumin (3.5-5.0) g/dL Urine Color Yellow Urine Appearance Clear (Clear) Urine pH 8.0 (5.0-8.0) Ur Specific [place] 1.026 (1.001-1.035) Urine Protein Trace H (Negative) Urine Glucose (UA) Negative (Negative) Urine Ketones 4+ H (Negative) Urine Blood Moderate H (Negative) Urine Nitrite Negative (Negative) Urine Bilirubin Negative (Negative) Urine Urobilinogen <2.0 (<2.0) mg/dL Ur Leukocyte Esterase Negative (Negative) Urine RBC 32 H (0-5) /hpf Urine WBC 1 (0-5) /hpf Ur Squamous Epith Cells 1 (0-4) /hpf Urine Mucus Rare H (None) /hpf Urine HCG, Qual Not Detected (Not Detectd) Disposition Clinical Impression: Pelvic pain Disposition: HOME SELF-CARE Condition: Good Instructions (If sedation given, give patient instructions): Pelvic Pain in Women (ED) Additional Instructions: Today you're seen and evaluated in emergency department. A CT was performed showing right adnexal fibroid versus ovarian cyst. This measured approximately 3 cm. He also found to have significant dehydration seen with 4+ ketones in her urine. Please follow up with gynecology as soon as possible regarding her symptoms. Prescriptions: HYDROcodone/APAP 5-325MG [[place] 5-325] 1 tab PO Q6HR PRN 3 Days #12 tab PRN Reason: Severe Pain Ondansetron Odt [Zofran Odt] 4 mg PO Q8HR PRN #12 tab PRN Reason: Nausea Is patient prescribed a controlled substance at d/c from ED?: Yes If prescribed controlled substance>3 days was MAPS reviewed?: Prescribed <3 Days Referrals: Severino Montoya DO [Doctor of Osteopathic Medicine] - 1-2 days Time of Disposition: 17:56
[2020-02-08 15:49] LABS: Basophils % (A) 0 %; Eosinophils # (A) 0.2 k/uL (0-0.7); Eosinophils % (A) 2 %; HCT 38.7 % (34.0-46.0); HGB 12.4 gm/dL (11.4-16.0); Lymphocytes # (A) 1.6 k/uL (1.0-4.8); Lymphocytes % (A) 16 %; MCH 29.8 pg (25.0-35.0); MCHC 32.1 g/dL (31.0-37.0); MCV 92.9 fL (80.0-100.0); Mean Platelet Volume 7.6; Monocytes # (A) 0.3 k/uL (0-1.0); Monocytes % (A) 3 %; Neutrophils # (A) 7.7 k/uL (1.3-7.7); Neutrophils % (A) 78 %; Platelet Count 320 k/uL (150-450); RBC 4.17 m/uL (3.80-5.40); RDW 11.9 % (11.5-15.5); WBC 9.9 k/uL (3.8-10.6)
[2020-02-08 15:58] LABS: Prothrombin Time 10.3 sec (9.0-12.0)
[2020-02-08 16:01] LABS: ALT 16 U/L (4-34); AST 27 U/L (14-36); African American GFR (CKD) >90 (>60 ml/min/1.73 sqM); Albumin 4.6 g/dL (3.5-5.0); Alkaline Phosphatase 55 U/L (38-126); Anion Gap 11 mmol/L; Blood Urea Nitrogen 8 mg/dL (7-17); Calcium 9.7 mg/dL (8.4-10.2); Carbon Dioxide 19 mmol/L (22-30); Chloride 105 mmol/L (98-107); Glucose 122 mg/dL (74-99); Non-African American GFR(CKD) >90 (>60 ml/min/1.73 sqM); Potassium 3.8 mmol/L (3.5-5.1); Sodium 135 mmol/L (137-145); Total Bilirubin 0.9 mg/dL (0.2-1.3); Total Protein 7.5 g/dL (6.3-8.2)
[2020-02-08 16:12] LABS: Appearance,Urine Clear (Clear); Bilirubin,Urine Negative (Negative); Blood,Urine Moderate (Negative); Color,Urine Yellow; Glucose,Urine (UA) Negative (Negative); Ketones,Urine 4+ (Negative); Leukocyte Esterase,Urine Negative (Negative); Mucus,Urine Rare /hpf; Nitrite,Urine Negative (Negative); Protein,Urine Trace (Negative); RBC,Urine 32 /hpf (0-5); Specific Gravity,Urine 1.026 (1.001-1.035); Squamous Epithelial Cell,Urine 1 /hpf (0-4); Urobilinogen,Urine <2.0 mg/dL (<2.0); WBC,Urine 1 /hpf (0-5)
[2020-02-08 16:26] LABS: Partial Thromboplastin Time 20.2 sec (22.0-30.0)
[2020-02-08 16:37] VITALS: RESP 18
--- NOTE | 2020-02-08 17:40 | CT ---
EXAMINATION TYPE: CT abdomen pelvis w con DATE OF EXAM: 02/08/2020 COMPARISON: None HISTORY: Right lower quadrant pain CT DLP: mGycm Automated exposure control for dose reduction was used. CONTRAST: Performed , patient injected with mL of . The contrast was Isovue 100 mL. FINDINGS: Lung bases are clear. There is no pleural effusion. Heart size is normal. Stomach is normal. Liver spleen pancreas gallbladder appear normal. Bile ducts are not dilated. There is no adrenal mass. Kidneys show satisfactory contrast opacification. There is no hydronephrosi s. Ureters are not dilated. There is no retroperitoneal adenopathy. Bladder distends smoothly. There is no inguinal hernia. Uterus is anteverted. There is 3 cm rounded density on the right side of the u terine fundus that is probably a fibroid. There is tiny amount of free fluid in the pelvis. Delayed images show normal renal excretion. There is no mesenteric edema. There is no ascites or free air. There is no sign of a bowel obstruction. Appendix is not definitely seen. There is no sign of t hickened appendix. There is mild lumbar levoscoliosis. Lumbar spine is intact. The bony pelvis appears intact. IMPRESSION: Tiny amount of fluid in the pelvis could BE physiologic. Right adnexal density is probably uterine fi broid. Hemorrhagic ovarian cyst not entirely excluded. No evidence of appendicitis.
[2020-02-08 18:16] VITALS: BP 118/81; PULSE 83; TEMP 98
== END 2020-02-08 18:27 | disposition home or self-care (01) ==
LOC: EC 14:56
DX: R10.2 Pelvic and perineal pain (principal); Z88.8 Allergy status to other drugs, medicaments and biological substances
CPT/HCPCS: 36415; 80053; 85025; 85610; 85730; 81001; 81025; 74177; 99284; 96374; 96375; 96361 ×3; J2270; J2405; Q9967

== ENCOUNTER 2021-04-28 20:21 | Emergency (ER) | payer BC, OTHER ==
[2021-04-28 20:52] VITALS: RESP 18
[2021-04-28] MEDS ORDERED: KETOROLAC 15 MG/ML 1 ML VIAL IVP STA (21:54)
[2021-04-28] MEDS ORDERED: HYDROmorphone 0.5 MG/0.5 ML SYRINGE IVP STA (21:54)
[2021-04-28] MEDS ORDERED: ONDANSETRON 4 MG/2 ML VIAL IVP STA (21:54)
[2021-04-28] MEDS ORDERED: SODIUM CHLORIDE 0.9% 1,000 ML IV STA (21:54)
--- NOTE | 2021-04-28 22:03 | ED ---
Abdominal Pain HPI - General Chief Complaint: Abdominal Pain Stated Complaint: Abd Pain Time Seen by Provider: 04/28/21 21:16 Source: patient, family, RN notes reviewed Mode of arrival: ambulatory Limitations: no limitations - History of Present Illness Initial Comments: This a 30-year-old female presents emergency Department chief complaint of right lower quadrant pain. Patient states is her recurrent issue states that she has had several evaluations including multiple imaging and including exploratory surgery by Dr. Crow. Patient states pain usually dissipates when she is on her menstrual cycle, control or when she was . Patient states she does not feel is related to gynecological issues she believes that she has bowel problems. She has not had a colonoscopy. Patient states she was trying to wait no to her appointment later this week states pain worsened today. She notices certain foods including coffee makes symptoms worse. - Related Data Home Medications Medication Instructions Recorded Confirmed Acetaminophen [Tylenol] 1,000 mg PO DAILY PRN 02/08/20 02/08/20 Previous Rx's Medication Instructions Recorded HYDROcodone/APAP 5-325MG [[place] 1 tab PO Q6HR PRN 3 Days #12 tab 02/08/20 5-325] Ondansetron Odt [Zofran Odt] 4 mg PO Q8HR PRN #12 tab 02/08/20 Ibuprofen [Motrin] 600 mg PO Q8HR PRN #20 tab 04/29/21 Allergies Allergy/AdvReac Type Severity Reaction Status Date / Time escitalopram oxalate Allergy Anaphylaxis Verified 04/28/21 20:52 [From Lexapro] Review of Systems ROS Statement: Those systems with pertinent positive or pertinent negative responses have been documented in the HPI. ROS Other: All systems not noted in ROS Statement are negative. Past Medical History Past Medical History: No Reported History Additional Past Medical History / Comment(s): Obstetric history: This is her first and she has had care with Dr Montoya since 9 weeks. A+, abs neg, Rub Imm, RPR NR, HEp B neg. Neg quad and normal 1hr GTT. GBS was obtained last week-no results known at this time. History of Any Multi-Drug Resistant Organisms: None Reported Additional Past Surgical History / Comment(s): Laparoscopy Past Anesthesia/Blood Transfusion Reactions: No Reported Reaction Past Psychological History: Depression Smoking Status: Never smoker Past Alcohol Use History: Rare Past Drug Use History: None Reported - Past Family History Father Family Medical History: Cancer, Hypertension General Exam Limitations: no limitations General appearance: alert, in no apparent distress Head exam: Present: atraumatic, normocephalic, normal inspection Neck exam: Present: normal inspection, full ROM. Absent: tenderness, meningismus, lymphadenopathy Respiratory exam: Present: normal lung sounds bilaterally. Absent: respiratory distress, wheezes, rales, rhonchi, stridor Cardiovascular Exam: Present: regular rate, normal rhythm, normal heart sounds. Absent: systolic murmur, diastolic murmur, rubs, gallop, clicks GI/Abdominal exam: Present: soft, tenderness, normal bowel sounds. Absent: distended, guarding, rebound, rigid Back exam: Absent: CVA tenderness (R), CVA tenderness (L) Neurological exam: Present: alert, oriented X3 Course Vital Signs 04/28/21 04/29/21 20:47 00:29 Temperature 98.5 F 98.7 F Pulse Rate 68 78 Respiratory 18 18 Rate Blood Pressure 145/76 110/71 O2 Sat by Pulse 100 96 Oximetry Medical Decision Making - Medical Decision Making Labs are unremarkable., Urinalysis and reviewed there is uterine fibroid otherwise unremarkable. patient has chronic pain issues. this has been evaluated several times patient will follow-up pcp at scheduled appointment patient will be referred for colonoscopy as patient believes she has underlying bowel issues. - Lab Data Result diagrams: 04/28/21 22:08 04/28/21 22:08 Lab Results 04/28/21 04/28/21 04/28/21 Range/Units 22:08 22:08 22:08 WBC 6.7 (3.8-10.6) k/uL RBC 4.08 (3.80-5.40) m/uL Hgb 12.9 (11.4-16.0) gm/dL Hct 39.0 (34.0-46.0) % MCV 95.4 (80.0-100.0) fL MCH 31.6 (25.0-35.0) pg MCHC 33.1 (31.0-37.0) g/dL RDW 11.6 (11.5-15.5) % Plt Count 365 (150-450) k/uL MPV 7.4 Neutrophils % 63 % Lymphocytes % 29 % Monocytes % 4 % Eosinophils % 2 % Basophils % 1 % Neutrophils # 4.3 (1.3-7.7) k/uL Lymphocytes # 2.0 (1.0-4.8) k/uL Monocytes # 0.3 (0-1.0) k/uL Eosinophils # 0.1 (0-0.7) k/uL Basophils # 0.0 (0-0.2) k/uL Sodium (137-145) mmol/L Potassium (3.5-5.1) mmol/L Chloride (98-107) mmol/L Carbon Dioxide (22-30) mmol/L Anion Gap mmol/L BUN (7-17) mg/dL Creatinine (0.52-1.04) mg/dL Est GFR (CKD-EPI)AfAm (>60 ml/min/1.73 sqM) Est GFR (CKD-EPI)NonAf (>60 ml/min/1.73 sqM) Glucose (74-99) mg/dL Plasma Lactic Acid Ari (0.7-2.0) mmol/L Calcium (8.4-10.2) mg/dL Total Bilirubin (0.2-1.3) mg/dL AST (14-36) U/L ALT (4-34) U/L Alkaline Phosphatase (38-126) U/L Total Protein (6.3-8.2) g/dL Albumin (3.5-5.0) g/dL Amylase (30-110) U/L Lipase (23-300) U/L Urine Color Yellow Urine Appearance Clear (Clear) Urine pH 5.5 (5.0-8.0) Ur Specific [place] 1.021 (1.001-1.035) Urine Protein Negative (Negative) Urine Glucose (UA) Negative (Negative) Urine Ketones Trace H (Negative) Urine Blood Large H (Negative) Urine Nitrite Negative (Negative) Urine Bilirubin Negative (Negative) Urine Urobilinogen <2.0 (<2.0) mg/dL Ur Leukocyte Esterase Negative (Negative) Urine RBC 17 H (0-5) /hpf Urine WBC 1 (0-5) /hpf Ur Squamous Epith Cells 1 (0-4) /hpf Urine HCG, Qual Not Detected (Not Detectd) 04/28/21 04/28/21 Range/Units 22:08 22:08 WBC (3.8-10.6) k/uL RBC (3.80-5.40) m/uL Hgb (11.4-16.0) gm/dL Hct (34.0-46.0) % MCV (80.0-100.0) fL MCH (25.0-35.0) pg MCHC (31.0-37.0) g/dL RDW (11.5-15.5) % Plt Count (150-450) k/uL MPV Neutrophils % % Lymphocytes % % Monocytes % % Eosinophils % % Basophils % % Neutrophils # (1.3-7.7) k/uL Lymphocytes # (1.0-4.8) k/uL Monocytes # (0-1.0) k/uL Eosinophils # (0-0.7) k/uL Basophils # (0-0.2) k/uL Sodium 139 (137-145) mmol/L Potassium 4.1 (3.5-5.1) mmol/L Chloride 107 (98-107) mmol/L Carbon Dioxide 21 L (22-30) mmol/L Anion Gap 11 mmol/L BUN 9 (7-17) mg/dL Creatinine 0.79 (0.52-1.04) mg/dL Est GFR (CKD-EPI)AfAm >90 (>60 ml/min/1.73 sqM) Est GFR (CKD-EPI)NonAf >90 (>60 ml/min/1.73 sqM) Glucose 107 H (74-99) mg/dL Plasma Lactic Acid Ari 0.9 (0.7-2.0) mmol/L Calcium 9.2 (8.4-10.2) mg/dL Total Bilirubin 0.5 (0.2-1.3) mg/dL AST 24 (14-36) U/L ALT 11 (4-34) U/L Alkaline Phosphatase 42 (38-126) U/L Total Protein 7.5 (6.3-8.2) g/dL Albumin 4.2 (3.5-5.0) g/dL Amylase 93 (30-110) U/L Lipase 114 (23-300) U/L Urine Color Urine Appearance (Clear) Urine pH (5.0-8.0) Ur Specific [place] (1.001-1.035) Urine Protein (Negative) Urine Glucose (UA) (Negative) Urine Ketones (Negative) Urine Blood (Negative) Urine Nitrite (Negative) Urine Bilirubin (Negative) Urine Urobilinogen (<2.0) mg/dL Ur Leukocyte Esterase (Negative) Urine RBC (0-5) /hpf Urine WBC (0-5) /hpf Ur Squamous Epith Cells (0-4) /hpf Urine HCG, Qual (Not Detectd) Disposition Clinical Impression: Abdominal pain Disposition: HOME SELF-CARE Condition: Stable Instructions (If sedation given, give patient instructions): Abdominal Pain (ED) Additional Instructions: Please return to the Emergency Department if symptoms worsen or any other concerns. Prescriptions: Ibuprofen [Motrin] 600 mg PO Q8HR PRN #20 tab PRN Reason: Pain Is patient prescribed a controlled substance at d/c from ED?: No Referrals: Raleigh Simons DO [Primary Care Provider] - 1-2 days Tonja Sutherland MD [STAFF PHYSICIAN] - 1-2 days Boubacar Thomas MD [STAFF PHYSICIAN] - 1-2 days Time of Disposition: 00:33
[2021-04-28 22:36] LABS: Appearance,Urine Clear (Clear); Bilirubin,Urine Negative (Negative); Blood,Urine Large (Negative); Color,Urine Yellow; Glucose,Urine (UA) Negative (Negative); Ketones,Urine Trace (Negative); Leukocyte Esterase,Urine Negative (Negative); Nitrite,Urine Negative (Negative); PH, Urine 5.5 (5.0-8.0); Protein,Urine Negative (Negative); RBC,Urine 17 /hpf (0-5); Specific Gravity,Urine 1.021 (1.001-1.035); Squamous Epithelial Cell,Urine 1 /hpf (0-4); Urobilinogen,Urine <2.0 mg/dL (<2.0); WBC,Urine 1 /hpf (0-5)
[2021-04-28 22:39] LABS: Basophils % (A) 1 %; Eosinophils # (A) 0.1 k/uL (0-0.7); Eosinophils % (A) 2 %; HGB 12.9 gm/dL (11.4-16.0); Lymphocytes % (A) 29 %; MCH 31.6 pg (25.0-35.0); MCHC 33.1 g/dL (31.0-37.0); MCV 95.4 fL (80.0-100.0); Mean Platelet Volume 7.4; Monocytes # (A) 0.3 k/uL (0-1.0); Monocytes % (A) 4 %; Neutrophils # (A) 4.3 k/uL (1.3-7.7); Neutrophils % (A) 63 %; Platelet Count 365 k/uL (150-450); RBC 4.08 m/uL (3.80-5.40); RDW 11.6 % (11.5-15.5); WBC 6.7 k/uL (3.8-10.6)
[2021-04-28 22:56] LABS: ALT 11 U/L (4-34); AST 24 U/L (14-36); African American GFR (CKD) >90 (>60 ml/min/1.73 sqM); Albumin 4.2 g/dL (3.5-5.0); Alkaline Phosphatase 42 U/L (38-126); Amylase 93 U/L (30-110); Anion Gap 11 mmol/L; Blood Urea Nitrogen 9 mg/dL (7-17); Calcium 9.2 mg/dL (8.4-10.2); Carbon Dioxide 21 mmol/L (22-30); Chloride 107 mmol/L (98-107); Glucose 107 mg/dL (74-99); Lipase 114 U/L (23-300); Non-African American GFR(CKD) >90 (>60 ml/min/1.73 sqM); Potassium 4.1 mmol/L (3.5-5.1); Sodium 139 mmol/L (137-145); Total Bilirubin 0.5 mg/dL (0.2-1.3); Total Protein 7.5 g/dL (6.3-8.2)
--- NOTE | 2021-04-29 00:03 | US ---
EXAMINATION TYPE: US transvaginal DATE OF EXAM: 04/28/2021 COMPARISON: CT 02/08/2020, US 05/17/2016 CLINICAL HISTORY: pain. RLQ pain TECHNIQUE: . Transvaginal sonographic images of the pelvis were acquired. Date of LMP: 04/25/2021 EXAM MEASUREMENTS: Uterus: 8.4 x 4.0 x 5.4 cm Endometrial Stripe: 0.5 cm Right Ovary: 2.1 x 2.1 x 1.9 cm Left Ovary: 2.8 x 1.7 x 1.5 cm 1. Uterus: Anteverted There is a complex area visualized in the right myometrium measuring 2.0 x 1 .7 x 2.6 cm 2. Endometrium: Fluid visualized within 3. Right Ovary: wnl 4. Left Ovary: wnl Spectral, color and waveform doppler imaging shows good arterial and venous flow within the ovaries ; there is no evidence for ovarian torsion. 5. Bilateral Adnexa: wnl 6. Posterior cul-de-sac: Small amount of free fluid visualized IMPRESSION: Small complex intrauterine fluid collection. No pole or yolk sac. Clinical significance is not clear. No adnexal mass. No evidence of ovarian torsion.
[2021-04-29 00:30] VITALS: BP 110/71; PULSE 78; TEMP 98.7
[2021-04-29] MEDS ORDERED: ACET/COD 300 MG/30 MG STARTER PACK 6 TAB BTL PO STA (00:32)
== END 2021-04-29 00:53 | disposition home or self-care (01) ==
LOC: EC 20:21
DX: D25.9 Leiomyoma of uterus, unspecified (principal); Z88.8 Allergy status to other drugs, medicaments and biological substances
CPT/HCPCS: 36415; 80053; 82150; 83605; 83690; 85025; 81001; 81025; 93975; 76830; 99284; 96374; 96375; 96361; J2405; J1885; J1170

== ENCOUNTER 2022-01-17 03:48 | Emergency (ER) | payer OTHER ==
[2022-01-17 03:53] VITALS: PULSE 80; TEMP 98.1
[2022-01-17 04:28] LABS: Appearance,Urine Clear (Clear); Bilirubin,Urine Negative (Negative); Blood,Urine Moderate (Negative); Color,Urine Yellow; Glucose,Urine (UA) Negative (Negative); Hyaline Casts,Urine 1 /lpf (0-2); Ketones,Urine Trace (Negative); Leukocyte Esterase,Urine Small (Negative); Mucus,Urine Many /hpf; Nitrite,Urine Negative (Negative); PH, Urine 6.5 (5.0-8.0); Protein,Urine 1+ (Negative); RBC,Urine 7 /hpf (0-5); Specific Gravity,Urine 1.035 (1.001-1.035); Squamous Epithelial Cell,Urine 1 /hpf (0-4); WBC,Urine 1 /hpf (0-5)
[2022-01-17] MEDS ORDERED: ONDANSETRON 4 MG/2 ML VIAL IVP STA (05:00)
[2022-01-17] MEDS ORDERED: SODIUM CHLORIDE 0.9% 500 ML 500 ML IV STA (05:00)
[2022-01-17] MEDS ORDERED: MORPHINE SULFATE 4 MG/ML SYRINGE IV STA ×2 (05:00→07:35)
--- NOTE | 2022-01-17 05:05 | ED ---
Abdominal Pain HPI - General Chief Complaint: Abdominal Pain Stated Complaint: Abd Pain Time Seen by Provider: 01/17/22 04:39 Source: patient Mode of arrival: ambulatory Limitations: no limitations - History of Present Illness MD Complaint: abdominal pain -: hour(s) Location: RLQ Radiation: suprapubic Migration to: no migration Severity: severe Quality: cramping, aching Consistency: colicky Improves With: nothing Worsens With: nothing Associated Symptoms: nausea, vomiting - Related Data LMP (females 10-50): this week Home Medications Medication Instructions Recorded Confirmed Acetaminophen [Tylenol] 1,000 mg PO DAILY PRN 02/08/20 02/08/20 Previous Rx's Medication Instructions Recorded HYDROcodone/APAP 5-325MG [[place] 1 tab PO Q6HR PRN 3 Days #12 tab 02/08/20 5-325] Ondansetron Odt [Zofran Odt] 4 mg PO Q8HR PRN #12 tab 02/08/20 Ibuprofen [Motrin] 600 mg PO Q8HR PRN #20 tab 04/29/21 HYDROcodone/APAP 5-325MG [[place] 1 tab PO Q4HR PRN 3 Days #12 tab 01/17/22 5-325] Allergies Allergy/AdvReac Type Severity Reaction Status Date / Time escitalopram oxalate Allergy Anaphylaxis Verified 04/28/21 20:52 [From [facility]] Review of Systems ROS Statement: Those systems with pertinent positive or pertinent negative responses have been documented in the HPI. ROS Other: All systems not noted in ROS Statement are negative. Constitutional: Denies: fever, chills Respiratory: Denies: cough, dyspnea Cardiovascular: Denies: chest pain, palpitations Gastrointestinal: Reports: abdominal pain, nausea, vomiting. Denies: diarrhea Genitourinary: Denies: dysuria, hematuria Musculoskeletal: Denies: back pain Skin: Denies: rash Neurological: Denies: headache, weakness Past Medical History Past Medical History: No Reported History Additional Past Medical History / Comment(s): Obstetric history: This is her first and she has had care with Dr Montoya since 9 weeks. A+, abs neg, Rub Imm, RPR NR, HEp B neg. Neg quad and normal 1hr GTT. GBS was obtained last week-no results known at this time. IBS History of Any Multi-Drug Resistant Organisms: None Reported Additional Past Surgical History / Comment(s): Laparoscopy Past Anesthesia/Blood Transfusion Reactions: No Reported Reaction Past Psychological History: Depression Smoking Status: Never smoker Past Alcohol Use History: Rare Past Drug Use History: None Reported - Past Family History Father Family Medical History: Cancer, Hypertension General Exam Limitations: no limitations General appearance: alert, in no apparent distress Head exam: Present: atraumatic, normocephalic Eye exam: Present: normal appearance. Absent: scleral icterus, conjunctival injection Neck exam: Present: normal inspection Respiratory exam: Present: normal lung sounds bilaterally. Absent: respiratory distress, wheezes, rales, rhonchi, stridor Cardiovascular Exam: Present: regular rate, normal rhythm, normal heart sounds. Absent: systolic murmur, diastolic murmur, rubs, gallop GI/Abdominal exam: Present: soft, tenderness. Absent: distended, guarding, rebound, rigid, mass, pulsatile mass Extremities exam: Present: normal inspection, normal capillary refill. Absent: pedal edema, calf tenderness Back exam: Present: normal inspection. Absent: CVA tenderness (R), CVA tenderness (L) Neurological exam: Present: alert Skin exam: Present: warm, dry, intact, normal color. Absent: rash Course Vital Signs 01/17/22 03:49 Temperature 98.1 F Pulse Rate 80 Respiratory 20 Rate Blood Pressure 129/89 O2 Sat by Pulse 100 Oximetry Medical Decision Making - Lab Data Result diagrams: 01/17/22 05:42 01/17/22 05:42 Lab Results 01/17/22 01/17/22 01/17/22 Range/Units 03:59 03:59 05:42 WBC 7.2 (3.8-10.6) k/uL RBC 3.97 (3.80-5.40) m/uL Hgb 12.5 (11.4-16.0) gm/dL Hct 37.9 (34.0-46.0) % MCV 95.6 (80.0-100.0) fL MCH 31.5 (25.0-35.0) pg MCHC 33.0 (31.0-37.0) g/dL RDW 12.0 (11.5-15.5) % Plt Count 313 (150-450) k/uL MPV 7.3 Neutrophils % 79 % Lymphocytes % 14 % Monocytes % 4 % Eosinophils % 2 % Basophils % 1 % Neutrophils # 5.7 (1.3-7.7) k/uL Lymphocytes # 1.0 (1.0-4.8) k/uL Monocytes # 0.3 (0-1.0) k/uL Eosinophils # 0.1 (0-0.7) k/uL Basophils # 0.1 (0-0.2) k/uL Sodium (137-145) mmol/L Potassium (3.5-5.1) mmol/L Chloride (98-107) mmol/L Carbon Dioxide (22-30) mmol/L Anion Gap mmol/L BUN (7-17) mg/dL Creatinine (0.52-1.04) mg/dL Est GFR (CKD-EPI)AfAm (>60 ml/min/1.73 sqM) Est GFR (CKD-EPI)NonAf (>60 ml/min/1.73 sqM) Glucose (74-99) mg/dL Calcium (8.4-10.2) mg/dL Total Bilirubin (0.2-1.3) mg/dL AST (14-36) U/L ALT (4-34) U/L Alkaline Phosphatase (38-126) U/L C-Reactive Protein (<1.0) mg/dL Total Protein (6.3-8.2) g/dL Albumin (3.5-5.0) g/dL Amylase (30-110) U/L Lipase (23-300) U/L Urine Color Yellow Urine Appearance Clear (Clear) Urine pH 6.5 (5.0-8.0) Ur Specific [place] 1.035 (1.001-1.035) Urine Protein 1+ H (Negative) Urine Glucose (UA) Negative (Negative) Urine Ketones Trace H (Negative) Urine Blood Moderate H (Negative) Urine Nitrite Negative (Negative) Urine Bilirubin Negative (Negative) Urine Urobilinogen 3.0 (<2.0) mg/dL Ur Leukocyte Esterase Small H (Negative) Urine RBC 7 H (0-5) /hpf Urine WBC 1 (0-5) /hpf Ur Squamous Epith Cells 1 (0-4) /hpf Hyaline Casts 1 (0-2) /lpf Urine Mucus Many H (None) /hpf Urine HCG, Qual Not Detected (Not Detectd) 01/17/22 Range/Units 05:42 WBC (3.8-10.6) k/uL RBC (3.80-5.40) m/uL Hgb (11.4-16.0) gm/dL Hct (34.0-46.0) % MCV (80.0-100.0) fL MCH (25.0-35.0) pg MCHC (31.0-37.0) g/dL RDW (11.5-15.5) % Plt Count (150-450) k/uL MPV Neutrophils % % Lymphocytes % % Monocytes % % Eosinophils % % Basophils % % Neutrophils # (1.3-7.7) k/uL Lymphocytes # (1.0-4.8) k/uL Monocytes # (0-1.0) k/uL Eosinophils # (0-0.7) k/uL Basophils # (0-0.2) k/uL Sodium 139 (137-145) mmol/L Potassium 3.8 (3.5-5.1) mmol/L Chloride 106 (98-107) mmol/L Carbon Dioxide 21 L (22-30) mmol/L Anion Gap 12 mmol/L BUN 8 (7-17) mg/dL Creatinine 0.63 (0.52-1.04) mg/dL Est GFR (CKD-EPI)AfAm >90 (>60 ml/min/1.73 sqM) Est GFR (CKD-EPI)NonAf >90 (>60 ml/min/1.73 sqM) Glucose 103 H (74-99) mg/dL Calcium 9.4 (8.4-10.2) mg/dL Total Bilirubin 0.6 (0.2-1.3) mg/dL AST 23 (14-36) U/L ALT 10 (4-34) U/L Alkaline Phosphatase 58 (38-126) U/L C-Reactive Protein <0.5 (<1.0) mg/dL Total Protein 7.7 (6.3-8.2) g/dL Albumin 4.6 (3.5-5.0) g/dL Amylase 113 H (30-110) U/L Lipase 89 (23-300) U/L Urine Color Urine Appearance (Clear) Urine pH (5.0-8.0) Ur Specific [place] (1.001-1.035) Urine Protein (Negative) Urine Glucose (UA) (Negative) Urine Ketones (Negative) Urine Blood (Negative) Urine Nitrite (Negative) Urine Bilirubin (Negative) Urine Urobilinogen (<2.0) mg/dL Ur Leukocyte Esterase (Negative) Urine RBC (0-5) /hpf Urine WBC (0-5) /hpf Ur Squamous Epith Cells (0-4) /hpf Hyaline Casts (0-2) /lpf Urine Mucus (None) /hpf Urine HCG, Qual (Not Detectd) Disposition Clinical Impression: Abdominal pain Disposition: HOME SELF-CARE Condition: Good Instructions (If sedation given, give patient instructions): Abdominal Pain (ED) Prescriptions: HYDROcodone/APAP 5-325MG [[place] 5-325] 1 tab PO Q4HR PRN 3 Days #12 tab PRN Reason: Pain Is patient prescribed a controlled substance at d/c from ED?: No Referrals: Raleigh Simons DO [Primary Care Provider] - 1-2 days
[2022-01-17 05:58] LABS: Basophils # (A) 0.1 k/uL (0-0.2); Basophils % (A) 1 %; Eosinophils # (A) 0.1 k/uL (0-0.7); Eosinophils % (A) 2 %; HCT 37.9 % (34.0-46.0); HGB 12.5 gm/dL (11.4-16.0); Lymphocytes % (A) 14 %; MCH 31.5 pg (25.0-35.0); MCV 95.6 fL (80.0-100.0); Mean Platelet Volume 7.3; Monocytes # (A) 0.3 k/uL (0-1.0); Monocytes % (A) 4 %; Neutrophils # (A) 5.7 k/uL (1.3-7.7); Neutrophils % (A) 79 %; Platelet Count 313 k/uL (150-450); RBC 3.97 m/uL (3.80-5.40); WBC 7.2 k/uL (3.8-10.6)
[2022-01-17 06:10] LABS: ALT 10 U/L (4-34); AST 23 U/L (14-36); African American GFR (CKD) >90 (>60 ml/min/1.73 sqM); Albumin 4.6 g/dL (3.5-5.0); Alkaline Phosphatase 58 U/L (38-126); Amylase 113 U/L (30-110); Anion Gap 12 mmol/L; Blood Urea Nitrogen 8 mg/dL (7-17); Calcium 9.4 mg/dL (8.4-10.2); Carbon Dioxide 21 mmol/L (22-30); Chloride 106 mmol/L (98-107); Glucose 103 mg/dL (74-99); Lipase 89 U/L (23-300); Non-African American GFR(CKD) >90 (>60 ml/min/1.73 sqM); Potassium 3.8 mmol/L (3.5-5.1); Sodium 139 mmol/L (137-145); Total Bilirubin 0.6 mg/dL (0.2-1.3); Total Protein 7.7 g/dL (6.3-8.2)
[2022-01-17 07:14] LABS: C Reactive Protein <0.5 mg/dL (<1.0)
[2022-01-17 07:48] VITALS: BP 112/82; RESP 18
== END 2022-01-17 07:57 | disposition home or self-care (01) ==
LOC: EC 03:48
DX: R10.30 Lower abdominal pain, unspecified (principal); R11.2 Nausea with vomiting, unspecified; Z88.8 Allergy status to other drugs, medicaments and biological substances
CPT/HCPCS: 36415; 80053; 82150; 83690; 85025; 86140; 81001; 81025; 99284; 96374; 96375; 96376; 96361; J2270; J2405

== ENCOUNTER → 2024-04-04 | Outpatient (CLI) | payer BC ==
[2024-04-04 15:09] LABS: Basophils # (A) 0.06 X 10*3/uL (0.00-0.10); Basophils % (A) 1.4 %; Eosinophils # (A) 0.18 X 10*3/uL (0.04-0.35); Eosinophils % (A) 4.2 %; HCT 38.9 % (37.2-46.3); HGB 12.4 g/dL (12.0-15.0); Lymphocytes # (A) 1.91 X 10*3/uL (0.90-5.00); Lymphocytes % (A) 44.8 %; MCH 30.2 pg (27.0-32.0); MCHC 31.9 g/dL (32.0-37.0); MCV 94.6 FL (80.0-97.0); Mean Platelet Volume 10.3 FL (9.5-12.2); Monocytes # (A) 0.28 X 10*3/uL (0.20-1.00); Monocytes % (A) 6.6 %; NRBC Per 100 WBC 0 X 10*3/uL (0.00-0.01); Neutrophils # (A) 1.82 X 10*3/uL (1.80-7.70); Neutrophils % (A) 42.8 %; Platelet Count 344 X 10*3/uL (140-440); RBC 4.11 X 10*6/uL (4.10-5.20); RDW 12.2 % (11.5-14.5); WBC 4.26 X 10*3/uL (4.50-10.00)
[2024-04-04 16:02] LABS: ALT 14 U/L (8-44); AST 25 U/L (13-35); Albumin 4.3 g/dL (3.8-4.9); Albumin/Globulin Ratio 1.59 Ratio (1.60-3.17); Alkaline Phosphatase 57 U/L (41-126); Blood Urea Nitrogen 8.4 mg/dL (9.0-27.0); Calcium 9.4 mg/dL (8.7-10.3); Carbon Dioxide 25.6 mmol/L (21.6-31.8); Chloride 105 mmol/L (96-109); Chol/HDL Ratio 2.37 Ratio; Globulin 2.7 g/dL (1.6-3.3); Glucose 82 mg/dL (70-110); LDL Cholesterol,Calculated 86.3 mg/dL (0.0-131.0); Magnesium 1.8 mg/dL (1.5-2.4); Potassium 4.3 mmol/L (3.5-5.5); Sodium 139 mmol/L (135-145); Total Bilirubin 0.6 mg/dL (0.3-1.2); VLDL Calculation 6.72 mg/dL (5.00-40.00)
== END | disposition home or self-care (01) ==
LOC: LABWHC1 08:51
PROVIDERS: ATTEND Internal Medicine
DX: E55.9 Vitamin D deficiency, unspecified (principal); Z00.00 Encounter for general adult medical examination without abnormal findings; E85.1 Neuropathic heredofamilial amyloidosis
CPT/HCPCS: 36415; 80053; 80061; 82306; 82533; 83735; 84443; 85025

== ENCOUNTER 2024-04-05 14:58 | Emergency (ER) | payer BC ==
[2024-04-05 15:07] VITALS: TEMP 97.9
[2024-04-05 16:12] LABS: Basophils % (A) 1 %; Eosinophils # (A) 0.2 k/uL (0-0.7); Eosinophils % (A) 3 %; HCT 38.5 % (34.0-46.0); HGB 12.4 gm/dL (11.4-16.0); Lymphocytes % (A) 39 %; MCH 30.4 pg (25.0-35.0); MCHC 32.3 g/dL (31.0-37.0); Mean Platelet Volume 7.2; Monocytes # (A) 0.3 k/uL (0-1.0); Monocytes % (A) 6 %; Neutrophils # (A) 2.5 k/uL (1.3-7.7); Neutrophils % (A) 49 %; Platelet Count 345 k/uL (150-450); RBC 4.09 m/uL (3.80-5.40); RDW 12.1 % (11.5-15.5); WBC 5.1 k/uL (3.8-10.6)
[2024-04-05 16:17] LABS: Appearance,Urine Clear (Clear); Bilirubin,Urine Negative (Negative); Blood,Urine Negative (Negative); Color,Urine Yellow; Glucose,Urine (UA) Negative (Negative); Ketones,Urine Negative (Negative); Leukocyte Esterase,Urine Negative (Negative); Mucus,Urine Rare /hpf; Nitrite,Urine Negative (Negative); PH, Urine 7.5 (5.0-8.0); Protein,Urine 1+ (Negative); RBC,Urine 1 /hpf (0-5); Specific Gravity,Urine 1.022 (1.001-1.035); Squamous Epithelial Cell,Urine 1 /hpf (0-4); WBC,Urine 1 /hpf (0-5)
[2024-04-05 16:29] LABS: ALT 16 U/L (4-34); AST 30 U/L (14-36); African American GFR (CKD) >90 (>60 ml/min/1.73 sqM); Albumin 3.8 g/dL (3.5-5.0); Alkaline Phosphatase 56 U/L (38-126); Anion Gap 7 mmol/L; Blood Urea Nitrogen 8 mg/dL (7-17); Calcium 9.2 mg/dL (8.4-10.2); Carbon Dioxide 26 mmol/L (22-30); Chloride 107 mmol/L (98-107); Glucose 88 mg/dL (74-99); Magnesium 1.8 mg/dL (1.6-2.3); Non-African American GFR(CKD) >90 (>60 ml/min/1.73 sqM); Phosphorus 2.6 mg/dL (2.5-4.5); Potassium 4.2 mmol/L (3.5-5.1); Sodium 140 mmol/L (137-145); Total Bilirubin 0.6 mg/dL (0.2-1.3); Total Protein 6.6 g/dL (6.3-8.2)
[2024-04-05 16:32] LABS: Partial Thromboplastin Time 24.9 sec (22.0-30.0); Prothrombin Time 10.6 sec (10.0-12.5)
[2024-04-05 16:37] LABS: NT-Pro-B-Type Natriuretic Pept 36 pg/mL
--- NOTE | 2024-04-05 16:51 | ED ---
Dizziness HPI - General Chief Complaint: Dizziness Stated Complaint: SOB Time Seen by Provider: 04/05/24 15:26 Source: patient, family, RN notes reviewed, old records reviewed Mode of arrival: ambulatory Limitations: no limitations - History of Present Illness Initial Comments: This is a 33-year-old female to the ER for evaluation today. Patient presents today for evaluation in regards to dizziness lightheadedness history of prior not currently patient states she has dizziness lightheadedness and room spinning that occurs fairly frequently. No trauma no fevers no other neurological symptoms noted occasional weakness heaviness and chest tightness MD Complaint: dizziness, lightheadedness, near syncope -: hour(s) Timing: sudden onset, gradual onset, awoke with symptoms Description: sense of movement, "room spinning", lightheadedness History of Same: Yes History of Trauma: Yes Severity: mild Improves With: nothing, remaining still Associated Symptoms: denies other symptoms - Related Data Home Medications Medication Instructions Recorded Confirmed Cholecalciferol [Vitamin D3 (125 125 mcg PO DAILY 04/05/24 04/05/24 Mcg = 5000 Iu)] Multivitamins, Thera [Multivitamin 1 tab PO DAILY 04/05/24 04/05/24 (formulary)] Allergies Allergy/AdvReac Type Severity Reaction Status Date / Time escitalopram oxalate Allergy Severe Anaphylaxis, Verified 04/05/24 17:29 [From Lexapro] difficulty swallowing, throat swelling Review of Systems ROS Statement: Those systems with pertinent positive or pertinent negative responses have been documented in the HPI. ROS Other: All systems not noted in ROS Statement are negative. Past Medical History Past Medical History: No Reported History Additional Past Medical History / Comment(s): Obstetric history: This is her first and she has had care with Dr Montoya since 9 weeks. A+, abs neg, Rub Imm, RPR NR, HEp B neg. Neg quad and normal 1hr GTT. GBS was obtained last week-no results known at this time. IBS History of Any Multi-Drug Resistant Organisms: None Reported Additional Past Surgical History / Comment(s): Laparoscopy Past Anesthesia/Blood Transfusion Reactions: No Reported Reaction Past Psychological History: Depression Smoking Status: Never smoker Past Alcohol Use History: Rare Past Drug Use History: None Reported - Past Family History Father Family Medical History: Cancer, Hypertension General Exam Limitations: no limitations General appearance: alert, in no apparent distress, anxious Head exam: Present: atraumatic, normocephalic, normal inspection Eye exam: Present: normal appearance, PERRL, EOMI. Absent: scleral icterus, conjunctival injection, periorbital swelling ENT exam: Present: normal exam, mucous membranes moist Neck exam: Present: normal inspection. Absent: tenderness, meningismus, lymphadenopathy Respiratory exam: Present: normal lung sounds bilaterally. Absent: respiratory distress, wheezes, rales, rhonchi, stridor Cardiovascular Exam: Present: regular rate, normal rhythm, normal heart sounds. Absent: systolic murmur, diastolic murmur, rubs, gallop, clicks GI/Abdominal exam: Present: soft, normal bowel sounds. Absent: distended, tenderness, guarding, rebound, rigid Extremities exam: Present: normal inspection, full ROM, normal capillary refill. Absent: tenderness, pedal edema, joint swelling, calf tenderness Back exam: Present: normal inspection Neurological exam: Present: alert, oriented X3, CN II-XII intact Psychiatric exam: Present: normal affect, normal mood Skin exam: Present: warm, dry, intact, normal color. Absent: rash Course Vital Signs 04/05/24 04/05/24 15:02 18:14 Temperature 97.9 F Pulse Rate 100 55 L Respiratory 20 16 Rate Blood Pressure 123/84 109/72 O2 Sat by Pulse 99 100 Oximetry - Reevaluation(s) Reevaluation #1: 04/05/24 16:50 medical record is reviewed Reevaluation #2: 04/05/24 16:50 patient is in no acute distress Reevaluation #3: Patient symptoms improved here in the ER Patient informed of results and questions answered Reevaluation #4: Was pt. sent in by a medical professional or institution (, PA, TREATER, urgent care, hospital, or shelter...) When possible be specific @ -no Did you speak to anyone other than the patient for history (EMS, parent, family, police, friend...)? What history was obtained from this source @ -no Did you review nursing and triage notes (agree or disagree)? Why? @ -agree Are old charts reviewed (outside hosp., previous admission, EMS record, old EKG, old radiological studies, urgent care reports/EKG's, shelter records)? Report findings @ -yes Differential Diagnosis (chest pain, altered mental status, abdominal pain women, abdominal pain men, vaginal bleeding, weakness, fever, dyspnea, syncope, headache, dizziness, GI bleed, back pain, seizure, CVA, palpatations, mental health, musculoskeletal)? @ -prior EKG interpreted by me (3pts min.). @ -yes X-rays interpreted by me (1pt min.). @ -yes negative for acute disease CT interpreted by me (1pt min.). @ -no U/S interpreted by me (1pt. min.). @ -no What testing was considered but not performed or refused? (CT, X-rays, U/S, labs)? Why? @ -none What meds were considered but not given or refused? Why? @ -none Did you discuss the management of the patient with other professionals (professionals i.e. , PA, TREATER, lab, RT, psych nurse, social work administrator, customer contact sales associate, teacher, alumni relations officer, supportive employment case manager)? Give summary @ -no Was smoking cessation discussed for >3mins.? @ -no Was critical care preformed (if so, how long)? @ -no Were there social determinants of health that impacted care today? How? (Homelessness, low income, unemployed, alcoholism, drug addiction, transportation, low edu. Level, literacy, decrease access to med. care, skilled nursing, rehab)? @ -none Was there de-escalation of care discussed even if they declined (Discuss DNR or withdrawal of care, Hospice)? DNR status @ -no What co-morbidities impacted this encounter? (DM, HTN, Smoking, COPD, CAD, Cancer, CVA, ARF, Chemo, Hep., AIDS, mental health diagnosis, sleep apnea, morbid obesity)? @ -none Was patient admitted / discharged? Hospital course, mention meds given and route, prescriptions, significant lab abnormalities, going to OR and other perti nent info. @ - Undiagnosed new problem with uncertain prognosis? @ -no Drug Therapy requiring intensive monitoring for toxicity (Heparin, Nitro, Insulin, Cardizem)? @ -no Were any procedures done? @ -no Diagnosis/symptom? @ - Acute, or Chronic, or Acute on Chronic? @ -Acute Uncomplicated (without systemic symptoms) or Complicated (systemic symptoms)? @ -Complicated Side effects of treatment? @ -no Exacerbation, Progression, or Severe Exacerbation? @ -exacerbation Poses a threat to life or bodily function? How? (Chest pain, [place], NE, pneumonia, PE, COPD, DKA, ARF, appy, cholecystitis, CVA, Diverticulitis, Homicidal, Suicidal, threat to staff... and all critical care pts) @ -yes Reevaluation #5: Differential Dizziness: Benign paroxysmal positional Vertigo, Meniere's disease, otitis media, acoustic neuroma, vertebrobasilar insufficiency, cerebellar stroke, encephalitis, hypovolemic, arrhythmia, coronary artery syndrome, anemia, this is not meant to be an all-inclusive list EKG Findings - EKG Comments: EKG Findings:: EKG is sinus 86 MD 161 QRS 89 QTc 404 - EKG Results: EKG: interpreted by ANDREW Medical Decision Making - Medical Decision Making 33 female presenting with dizziness today. No acute cause found for patient's symptoms. Patient feels well able to ambulate without difficulty no headache and can be discharged home - Lab Data Result diagrams: 04/05/24 15:50 04/05/24 15:50 Lab Results 04/05/24 04/05/24 04/05/24 Range/Units 15:50 15:50 15:50 WBC 5.1 (3.8-10.6) k/uL RBC 4.09 (3.80-5.40) m/uL Hgb 12.4 (11.4-16.0) gm/dL Hct 38.5 (34.0-46.0) % MCV 94.0 (80.0-100.0) fL MCH 30.4 (25.0-35.0) pg MCHC 32.3 (31.0-37.0) g/dL RDW 12.1 (11.5-15.5) % Plt Count 345 (150-450) k/uL MPV 7.2 Neutrophils % 49 % Lymphocytes % 39 % Monocytes % 6 % Eosinophils % 3 % Basophils % 1 % Neutrophils # 2.5 (1.3-7.7) k/uL Lymphocytes # 2.0 (1.0-4.8) k/uL Monocytes # 0.3 (0-1.0) k/uL Eosinophils # 0.2 (0-0.7) k/uL Basophils # 0.0 (0-0.2) k/uL PT 10.6 (10.0-12.5) sec INR 1.0 (<1.2) APTT 24.9 (22.0-30.0) sec Sodium (137-145) mmol/L Potassium (3.5-5.1) mmol/L Chloride (98-107) mmol/L Carbon Dioxide (22-30) mmol/L Anion Gap mmol/L BUN (7-17) mg/dL Creatinine (0.52-1.04) mg/dL Est GFR (CKD-EPI)AfAm (>60 ml/min/1.73 sqM) Est GFR (CKD-EPI)NonAf (>60 ml/min/1.73 sqM) Glucose (74-99) mg/dL Plasma Lactic Acid Ari (0.7-2.0) mmol/L Calcium (8.4-10.2) mg/dL Phosphorus (2.5-4.5) mg/dL Magnesium (1.6-2.3) mg/dL Total Bilirubin (0.2-1.3) mg/dL AST (14-36) U/L ALT (4-34) U/L Alkaline Phosphatase (38-126) U/L Troponin I (0.000-0.034) ng/mL NT-Pro-B Natriuret Pep pg/mL Total Protein (6.3-8.2) g/dL Albumin (3.5-5.0) g/dL TSH (0.465-4.680) mIU/L Urine Color Yellow Urine Appearance Clear (Clear) Urine pH 7.5 (5.0-8.0) Ur Specific [place] 1.022 (1.001-1.035) Urine Protein 1+ H (Negative) Urine Glucose (UA) Negative (Negative) Urine Ketones Negative (Negative) Urine Blood Negative (Negative) Urine Nitrite Negative (Negative) Urine Bilirubin Negative (Negative) Urine Urobilinogen 2.0 (<2.0) mg/dL Ur Leukocyte Esterase Negative (Negative) Urine RBC 1 (0-5) /hpf Urine WBC 1 (0-5) /hpf Ur Squamous Epith Cells 1 (0-4) /hpf Urine Mucus Rare H (None) /hpf 04/05/24 04/05/24 04/05/24 Range/Units 15:50 15:50 15:50 WBC (3.8-10.6) k/uL RBC (3.80-5.40) m/uL Hgb (11.4-16.0) gm/dL Hct (34.0-46.0) % MCV (80.0-100.0) fL MCH (25.0-35.0) pg MCHC (31.0-37.0) g/dL RDW (11.5-15.5) % Plt Count (150-450) k/uL MPV Neutrophils % % Lymphocytes % % Monocytes % % Eosinophils % % Basophils % % Neutrophils # (1.3-7.7) k/uL Lymphocytes # (1.0-4.8) k/uL Monocytes # (0-1.0) k/uL Eosinophils # (0-0.7) k/uL Basophils # (0-0.2) k/uL PT (10.0-12.5) sec INR (<1.2) APTT (22.0-30.0) sec Sodium 140 (137-145) mmol/L Potassium 4.2 (3.5-5.1) mmol/L Chloride 107 (98-107) mmol/L Carbon Dioxide 26 (22-30) mmol/L Anion Gap 7 mmol/L BUN 8 (7-17) mg/dL Creatinine 0.74 (0.52-1.04) mg/dL Est GFR (CKD-EPI)AfAm >90 (>60 ml/min/1.73 sqM) Est GFR (CKD-EPI)NonAf >90 (>60 ml/min/1.73 sqM) Glucose 88 (74-99) mg/dL Plasma Lactic Acid Ari 1.3 (0.7-2.0) mmol/L Calcium 9.2 (8.4-10.2) mg/dL Phosphorus 2.6 (2.5-4.5) mg/dL Magnesium 1.8 (1.6-2.3) mg/dL Total Bilirubin 0.6 (0.2-1.3) mg/dL AST 30 (14-36) U/L ALT 16 (4-34) U/L Alkaline Phosphatase 56 (38-126) U/L Troponin I <0.012 (0.000-0.034) ng/mL NT-Pro-B Natriuret Pep 36 pg/mL Total Protein 6.6 (6.3-8.2) g/dL Albumin 3.8 (3.5-5.0) g/dL TSH 2.630 (0.465-4.680) mIU/L Urine Color Urine Appearance (Clear) Urine pH (5.0-8.0) Ur Specific [place] (1.001-1.035) Urine Protein (Negative) Urine Glucose (UA) (Negative) Urine Ketones (Negative) Urine Blood (Negative) Urine Nitrite (Negative) Urine Bilirubin (Negative) Urine Urobilinogen (<2.0) mg/dL Ur Leukocyte Esterase (Negative) Urine RBC (0-5) /hpf Urine WBC (0-5) /hpf Ur Squamous Epith Cells (0-4) /hpf Urine Mucus (None) /hpf - EKG Data -: EKG Interpreted by Co - Radiology Data Radiology results: report reviewed (CT brain is negative for acute disease), image reviewed Disposition Clinical Impression: Dehydration, Dizziness Disposition: HOME SELF-CARE Condition: Fair Instructions (If sedation given, give patient instructions): Dizziness (ED) Is patient prescribed a controlled substance at d/c from ED?: No Referrals: Brendan Barnes DO [Primary Care Provider] - 1-2 days Time of Disposition: 17:45
[2024-04-05] MEDS: SODIUM CHLORIDE 0.9% 1,000 ML IV STA (16:58)
--- NOTE | 2024-04-05 17:42 | CT ---
EXAMINATION TYPE: CT brain wo con CT DLP: 1123.4 mGycm, Automated exposure control for dose reduction was used. DATE OF EXAM: 04/05/2024 5:21 PM COMPARISON: None. CLINICAL INDICATION: Female, 33 years old with history of palma, Headache TECHNIQUE: Brain: Axial CT images of the brain were obtained with coronal and sagittal reformats created and rev iewed. Contrast used: None. Oral contrast used: None. FINDINGS: Brain: Extra-axial spaces: No abnormal extra-axial fluid collections. Ventricular system: Within normal limits Cerebral parenchyma: No acute intraparenchymal hemorrhage or mass effect. The miller-white junction is well differentiated. Cerebellum: Unremarkable. Mass effect: No evidence of midline shift. Intracranial vasculature: unremarkable Soft tissues: Normal. Calvarium/osseous structures: No depressed skull fracture. Paranasal sinuses and mastoid air cells: Mild scattered paranasal sinus disease. Visualized orbits: Orbital contents are intact. IMPRESSION: No acute intracranial process.
[2024-04-05 18:15] VITALS: BP 109/72; PULSE 55; RESP 16
== END 2024-04-05 18:16 | disposition home or self-care (01) ==
LOC: EC 14:58
DX: E86.0 Dehydration (principal); R42 Dizziness and giddiness; Z88.8 Allergy status to other drugs, medicaments and biological substances
CPT/HCPCS: 36415; 70450; 80053; 81001; 83605; 83735; 83880; 84100; 84443; 84484; 85025; 85610; 85730; 93005; 96360; 99285

== ENCOUNTER → 2024-12-03 | Outpatient (CLI) | payer BC ==
--- NOTE | 2024-12-03 10:01 | XR ---
EXAMINATION TYPE: XR cervical spine 3 views DATE OF EXAM: 12/03/2024 9:37 AM COMPARISON: None CLINICAL INDICATION: Female, 34 years old with history of M54.2 Cervicalgia; PHH, pain FINDINGS: There is straightening of the normal cervical lordosis. Mild early anterior endplate spondylosis C5-C 6. Disc interspaces and vertebral body heights are preserved. Alignment is maintained. Normal odontoi d view. No predental space widening or prevertebral soft tissue swelling. IMPRESSION: 1. Straightening of the normal cervical lordosis could be positional or due to muscle spasm. 2. Mild early degenerative disc disease C5-C6. [facility], Workstation: [facility], 12/03/2024 9:59 AM
== END | disposition home or self-care (01) ==
LOC: RADXRMAIN 09:19
PROVIDERS: ATTEND Family Medicine
DX: M50.322 Other cervical disc degeneration at C5-C6 level (principal)
CPT/HCPCS: 72040